=== PATIENT | male | born 1945 | race Caucasian/White ===

== ENCOUNTER 2018-02-28 12:44 | Inpatient (IN) | payer MEDICARE, MEDICAID ==
[2018-02-28] MEDS ORDERED: Heparin25000 units/250ml 1/2NS 25,000 UNITS/250 ML BAG IV STA ×2 (12:51)
--- NOTE | 2018-02-28 12:51 | C.PDOC ---
History Of Present Illness 72 year old male with a history of asthma presents to the ED via EMS with his family for evaluation new sudden onset of chest pain, headache, and difficulty breathing 30min prior to arrival. Per daughter the patient woke up with no symptoms and was able to ambulate. The daughter also notes he is prescribed Albuterol for the asthma, no other medications, no prior medical history. The family states he recently moved from [place], does not currently have a PMD. Code heart activated. Limited history due to clinical condition. Time Seen by Provider: 02/28/18 12:50 Chief Complaint (Nursing): Chest Pain History Per: Family (family.) History/Exam Limitations: clinical condition Onset/Duration Of Symptoms: Mins (30min prior to arrival.) Current Symptoms Are (Timing): Still Present Past Medical History Reviewed: Historical Data, Nursing Documentation, Vital Signs Family History: States: Unknown Family Hx Review Of Systems Review Of Systems: ROS cannot be obtained secondary to pt's inabilty to answer questions. Cardiovascular: Positive for: Chest Pain Respiratory: Positive for: Other (difficulty breathing.) Neurological: Positive for: Headache Physical Exam - Physical Exam Appears: Non-toxic, Other (moderate discomfort.) Skin: Warm, Dry Head: Atraumatic, Normacephalic Chest: Symmetrical Respiratory: Wheezing (expiratory. ) Additional Physical Exam Comments: PE limited due to patient's clinical condition. ED Course And Treatment - Laboratory Results Result Diagrams: 02/28/18 12:59 02/28/18 12:59 ECG: Interpreted By Me, Viewed By Me Interpretation Of ECG: --STEMI. --II, III aVF Rate From EC - Other Rad CXR X-Ray: Viewed By Me, Read By Radiologist Interpretation: FINDINGS: Patient rotation limits evaluation. LUNGS: Right lung hazy change, possible peripheral fibrotic changes. PLEURA: No pneumothorax or pleural fluid seen. CARDIOVASCULAR: Aortic atherosclerotic calcifications. Cardiomediastinal silhouette enlarged. OSSEOUS STRUCTURES: Spinal degenerative changes. VISUALIZED UPPER ABDOMEN: Normal. OTHER FINDINGS: None. IMPRESSION: Limited evaluation due to patient rotation. Right lung chronic interstitial changes with possible peripheral fibrotic changes. Progress - Re-Evaluation Re-evaluation Note: 02/28/18 12:51 CODE HEART ACTIVATED, DR LAGUERRE TO BEDSIDE 02/28/18 12:58 D/W DR HUGO HERNÁNDEZ CRYPTOLOGIC SUPPORT SPECIALIST - Data Reviewed Data Reviewed: Lab, Diagnostic imaging, EKG, Old records - Critical Care Citical Care: Excluding Proc Time Critical Care Time: 30 minutes Medical Decision Making Medical Decision Making: Plan: -CXR -Blood sent. -EKG -Nasal Cannula -Ecotrin -Heparin -Morphine -Brilinta Progress/Update: Dr. Laguerre at bedside. Patient taken up to County Nurse. 12:59pm Dr. Alvarado was paged. 1:13pm Spoke with Dr. Alvarado concerning patient's case. Disposition Counseled Patient/Family Regarding: Studies Performed, Diagnosis - Disposition Disposition: HOSPITALIZED Disposition Time: 12:56 Condition: CRITICAL - POA Present On Arrival: None Core Measure Indicators: Code Heart - Clinical Impression Clinical Impression: STEMI (ST elevation myocardial infarction) - Scribe Statement The provider has reviewed the documentation as recorded by the Scribe (Day Delvalle) Provider Attestation: All medical record entries made by the Scribe were at my direction and personally dictated by me. I have reviewed the chart and agree that the record accurately reflects my personal performance of the history, physical exam, medical decision making, and the department course for this patient. I have also personally directed, reviewed, and agree with the discharge instructions and disposition.
[2018-02-28 13:04] LABS: BASO # 0.1 K/uL (0.0-0.2); BASO % 1.3 % (0.0-2.0); EOS # 0.3 K/uL (0.0-0.7); HEMOGLOBIN 13.8 g/dL (12.0-18.0); LYMPH # 3.5 K/uL (1.0-4.3); LYMPH % 38.3 % (20.0-40.0); MEAN CELL VOLUME 90.3 fL (80.0-94.0); MEAN CORPUSCULAR HEMOGLOBIN 31.6 pg (27.0-31.0); MEAN CORPUSCULAR HGB CONC 34.9 g/dL (33.0-37.0); MEAN PLATELET VOLUME 7.4 fL (7.2-11.7); MONO # 0.9 K/uL (0.0-0.8); MONO % 9.9 % (0.0-10.0); NEUT # 4.3 K/uL (1.8-7.0); NEUT % 47.5 % (50.0-75.0); RBC 4.38 Mil/uL (4.40-5.90); RED CELL DISTRIBUTION WIDTH 12.8 % (11.5-14.5); WHITE BLOOD COUNT 9.1 K/uL (4.8-10.8)
--- NOTE | 2018-02-28 13:08 | RAD ---
Date of service: 02/28/2018 PROCEDURE: CHEST RADIOGRAPH, 1 VIEW HISTORY: chest pain COMPARISON: None available. FINDINGS: Patient rotation limits evaluation. LUNGS: Right lung hazy change, possible peripheral fibrotic changes. PLEURA: No pneumothorax or pleural fluid seen. CARDIOVASCULAR: Aortic atherosclerotic calcifications. Cardiomediastinal silhouette enlarged. OSSEOUS STRUCTURES: Spinal degenerative changes. VISUALIZED UPPER ABDOMEN: Normal. OTHER FINDINGS: None. IMPRESSION: Limited evaluation due to patient rotation. Right lung chronic interstitial changes with possible peripheral fibrotic changes.
[2018-02-28 13:12] LABS: INR 1.1
[2018-02-28] MEDS ORDERED: Aspirin 325 mg EC Tablets PO ONE (13:15)
[2018-02-28] MEDS ORDERED: Midazolam 2 MG/2 ML VIAL ONE (13:16)
[2018-02-28 13:18] LABS: ALB/GLOB RATIO 1.2 (1.0-2.1); ALBUMIN 4.1 g/dL (3.5-5.0); ALT/SGPT 21 U/L (21-72); AST/SGOT 26 U/L (17-59); BLOOD UREA NITROGEN 19 mg/dL (9-20); CALCIUM 9.1 mg/dl (8.6-10.4); GFR NON-AFRICAN AMERICAN > 60
[2018-02-28] MEDS ORDERED: Iodixanol 320 MG/ML 200 ML BOTTLE IV ONE (13:34)
[2018-02-28] MEDS ORDERED: Verapamil 2 ML ONE (13:34)
[2018-02-28] MEDS ORDERED: Iodixanol 320 MG/ML 100 ML BOTTLE IV ONE (13:35)
--- NOTE | 2018-02-28 13:37 | CP.PCM.CON ---
<Kendall Omalley - Last Filed: 02/28/18 14:27> History of Present Illness - History of Present Illness History of Present Illness: Kendall Omalley, PGY-[address] Laguerre, Cardiology Mr. 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 Patient returned from walking outside with his , became cool to touch, diaphoretic and his eyes started to twitch. Patient reported dizziness and L sided chest pain. Family then called and patient was brought in by ambulance. Code Heart was called while in ED, showing a inferior wall STEMI. Patient family at bedside and provided translation. Family reports 6 months of paroxysmal chest pain, but patient always said that it was due to asthma and unknown pulmonary scar tissue and would take his inhaler 3 times daily with some relief. Patient never been on antiplatelet therapy or blood thinners. Takes no medications regularly aside from inhaler and has never been followed by a can conveyor feeder. No history of CAD, DM or HTN in family. Family reports a past Echo with no known issues, but family was told it was normal. Past Patient History - Past Social History Smoking Status: Never Smoked - CARDIAC Other/Comment: states history of stroke "around 20 years ago" - PULMONARY Hx Respiratory Disorders: Yes Hx Asthma: Yes - PSYCHIATRIC Hx Substance Use: No - SURGICAL HISTORY Hx Surgeries: No - ANESTHESIA Hx Anesthesia: No Hx Anesthesia Reactions: No Hx Malignant Hyperthermia: No Meds Allergies/Adverse Reactions: Allergies Allergy/AdvReac Type Severity Reaction Status Date / Time No Known Allergies Allergy Unverified 02/28/18 13:23 - Medications Medications: Current Medications Aspirin (Ecotrin) 325 mg PO ONCE ONE Stop: 02/28/18 13:16 Heparin Sodium (Porcine) (Heparin) 5,000 units IV ONCE ONE Stop: 02/28/18 13:16 Last Admin: 02/28/18 13:24 Dose: 5,000 units Heparin Sodium/Sodium Chloride (Heparin 31480 Units/250ml 1/2 Normal Saline) 25,000 units in 250 mls @ 0 mls/hr IV .Q0M STA; Protocol Stop: 02/28/18 12:52 Metoprolol Tartrate (Lopressor) 25 mg PO ONCE ONE Stop: 02/28/18 13:31 Last Admin: 02/28/18 13:00 Dose: 25 mg Morphine Sulfate (Morphine) 2 mg IVP ONCE ONE Stop: 02/28/18 13:31 Rosuvastatin Calcium (Crestor) 10 mg PO ONCE ONE Stop: 02/28/18 13:31 Last Admin: 02/28/18 13:00 Dose: 80 mg Ticagrelor (Brilinta) 180 mg PO ONCE ONE Stop: 02/28/18 13:31 Last Admin: 02/28/18 12:55 Dose: 180 mg Physical Exam - Constitutional Appears: In Acute Distress - Head Exam Head Exam: ATRAUMATIC, NORMAL INSPECTION, NORMOCEPHALIC - Eye Exam Eye Exam: EOMI, Normal appearance Pupil Exam: PERRL - ENT Exam ENT Exam: Mucous Membranes Moist - Respiratory Exam Respiratory Exam: Decreased Breath Sounds, Wheezes. absent: Chest Wall Tenderness, Clear to Auscultation Bilateral, Rales, Respiratory Distress, Stridor, NORMAL BREATHING PATTERN Additional comments: Tachypnea - Cardiovascular Exam Cardiovascular Exam: RRR, +S1, +S2. absent: Bradycardia, Tachycardia - GI/Abdominal Exam GI & Abdominal Exam: Soft. absent: Distended, Firm, Guarding, Rebound, Tenderness - Extremities Exam Extremities exam: Negative for: pedal edema - Neurological Exam Neurological exam: Alert, Oriented x3 Results - Vital Signs Recent Vital Signs: Last Vital Signs Temp 98 F 02/28/18 12:45 Pulse 78 02/28/18 12:45 Resp 18 02/28/18 12:45 BP 136/72 02/28/18 13:00 Pulse Ox 98 02/28/18 12:45 - Labs Result Diagrams: 02/28/18 12:59 02/28/18 12:59 Labs: Laboratory Results - last 24 hr 02/28/18 02/28/18 02/28/18 12:59 12:59 12:59 WBC 9.1 RBC 4.38 L Hgb 13.8 Hct 39.5 MCV 90.3 MCH 31.6 H MCHC 34.9 RDW 12.8 Plt Count 359 MPV 7.4 Neut % (Auto) 47.5 L Lymph % (Auto) 38.3 [place] % (Auto) 9.9 Eos % (Auto) 3.0 Baso % (Auto) 1.3 Neut # (Auto) 4.3 Lymph # (Auto) 3.5 [place] # (Auto) 0.9 H Eos # (Auto) 0.3 Baso # (Auto) 0.1 PT 12.0 INR 1.1 APTT 28 Sodium 139 Potassium 3.7 Chloride 101 Carbon Dioxide 29 Anion Gap 13 BUN 19 Creatinine 0.9 Est GFR ( Amer) > 60 Est GFR (Non-Af Amer) > 60 Random Glucose 126 H Calcium 9.1 Total Bilirubin 0.5 AST 26 ALT 21 Alkaline Phosphatase 100 Total Protein 7.6 Albumin 4.1 Globulin 3.5 Albumin/Globulin Ratio 1.2 Blood Type 02/28/18 12:59 WBC RBC Hgb Hct MCV MCH MCHC RDW Plt Count MPV Neut % (Auto) Lymph % (Auto) [place] % (Auto) Eos % (Auto) Baso % (Auto) Neut # (Auto) Lymph # (Auto) [place] # (Auto) Eos # (Auto) Baso # (Auto) PT INR APTT Sodium Potassium Chloride Carbon Dioxide Anion Gap BUN Creatinine Est GFR ( Amer) Est GFR (Non-Af Amer) Random Glucose Calcium Total Bilirubin AST ALT Alkaline Phosphatase Total Protein Albumin Globulin Albumin/Globulin Ratio Blood Type O POSITIVE Assessment & Plan - Assessment and Plan (Free Text) Assessment: Mr. Nascimento is a 72 M with PMHx smoking and hemmorhagic stroke 28 years ago who presents with STEMI. 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 STEMI - EKG shows ST elevations in inferior leads II, III and avF, 62 bpm - Patient received Heparin, ASA 325, Lopressor 25, Rosuvastatin 80 mg, Ticagrelor 180 mg - Cardiac cath performed, which showed 100% RCA occlusion which was opened with angioplasty and BIANCA. See dictation report for further details. - f/u Echo - Brilinta 90 BID, ASA 81 mg, crestor 40 mg PO, Toprol XL 25 mg PO daily - Plan to open partial proximal LAD occlusion in near future - F/u Repeat EKG in AM Abnormal CXR - CXR: Aortic atherosclerotic calcifications. Cardiomediastinal silhouette enlarged. Right lung chronic interstitial changes with possible peripheral fibrotic changes. - Consider CT chest to evaluate lung findings after other cardiac occlusions fixed Disposition: Patient transfer to ICU for continuous monitoring Patient seen, case reviewed, and plan discussed with Dr. Laguerre. Future recs per Dr. Laguerre. Kendall Omalley, PGY-1 <Vikram Laguerre - Last Filed: 03/02/18 23:57> Meds - Medications Medications: Current Medications Acetaminophen (Tylenol 325mg Tab) 650 mg PO Q6 PRN PRN Reason: Pain, Mild (1-3) Albuterol/Ipratropium (Duoneb 3 Mg/0.5 Mg (3 Ml) Ud) 3 ml INH RQ6 PRN PRN Reason: Shortness of Breath Aspirin (Ecotrin) 81 mg PO DAILY [facility] Last Admin: 03/02/18 10:48 Dose: 81 mg Metoprolol Tartrate (Lopressor) 25 mg PO BID [facility] Last Admin: 03/02/18 18:23 Dose: 25 mg Pantoprazole Sodium (Protonix Ec Tab) 40 mg PO DAILY [facility] Last Admin: 03/02/18 10:47 Dose: 40 mg Rosuvastatin Calcium (Crestor) 40 mg PO HS [facility] Last Admin: 03/02/18 21:31 Dose: 40 mg Ticagrelor (Brilinta) 90 mg PO BID [facility] Last Admin: 03/02/18 18:23 Dose: 90 mg Results - Vital Signs Recent Vital Signs: Last Vital Signs Temp 98 F 03/02/18 19:24 Pulse 71 03/02/18 20:00 Resp 18 03/02/18 19:24 BP 128/72 03/02/18 19:24 Pulse Ox 97 03/02/18 19:24 - Labs Result Diagrams: 03/01/18 06:32 03/01/18 06:32 Attending/Attestation - Attestation I have personally seen and examined this patient.: Yes I have fully participated in the care of the patient.: Yes I have reviewed all pertinent clinical information: Yes
--- NOTE | 2018-02-28 13:40 | CP.PCM.CON ---
<Iris Perales - Last Filed: 02/28/18 15:47> History of Present Illness - History of Present Illness History of Present Illness: Patient is a 72 yo male with a history of asthma and remote hemorrhagic CVA who presented with SOB, chest pain, and POE. This was after going for a walk. Patient also experienced dizziness and family reports it looked like his eyes rolled back. In ED, EKG revealed ST elevations in leads II, II, and aVF, and code heart was called. Patient went for a cardiac cath with Dr. Laguerre. PMH: Asthma Hemorrhagic CVA 28 yrs ago Denies any surgical hx Meds: Albuterol prn All: NKA FH: no HTN, DM, CAD SH: recently moved form [place] lives with former smoker x20 yrs- quit 30 yrs ago occasional alcohol use denies current tobacco or illicit drug use PMD: none Review of Systems - Review of Systems Systems not reviewed;Unavailable: Other (lethargic post-op) Past Patient History - Infectious Disease Hx of Infectious Diseases: None - Tetanus Immunizations Tetanus Immunization: Unknown - Past Medical History & Family History Past Medical History?: Yes Past Family History: Reviewed and not pertinent - Past Social History Smoking Status: Former Smoker Chewing Tobacco Use: No Cigar Use: No Alcohol: None Drugs: Denies Home Situation {Lives}: With Family - CARDIAC Hx Cardiac Disorders: No - PULMONARY Hx Respiratory Disorders: Yes Hx Asthma: Yes - NEUROLOGICAL HX Cerebrovascular Accident: Yes (states history of stroke "around 20 years ago") - PSYCHIATRIC Hx Substance Use: No - SURGICAL HISTORY Hx Surgeries: No - ANESTHESIA Hx Anesthesia: No Hx Anesthesia Reactions: No Hx Malignant Hyperthermia: No Meds Allergies/Adverse Reactions: Allergies Allergy/AdvReac Type Severity Reaction Status Date / Time No Known Allergies Allergy Unverified 02/28/18 13:23 - Medications Medications: Current Medications Aspirin (Ecotrin) 325 mg PO ONCE ONE Stop: 02/28/18 13:16 Heparin Sodium (Porcine) (Heparin) 5,000 units IV ONCE ONE Stop: 02/28/18 13:16 Last Admin: 02/28/18 13:24 Dose: 5,000 units Heparin Sodium/Sodium Chloride (Heparin 64520 Units/250ml 1/2 Normal Saline) 25,000 units in 250 mls @ 0 mls/hr IV .Q0M STA; Protocol Stop: 02/28/18 12:52 Metoprolol Tartrate (Lopressor) 25 mg PO ONCE ONE Stop: 02/28/18 13:31 Last Admin: 02/28/18 13:00 Dose: 25 mg Morphine Sulfate (Morphine) 2 mg IVP ONCE ONE Stop: 02/28/18 13:31 Rosuvastatin Calcium (Crestor) 80 mg PO STAT [facility] Stop: 02/28/18 13:01 Last Admin: 02/28/18 13:00 Dose: 80 mg Ticagrelor (Brilinta) 180 mg PO ONCE ONE Stop: 02/28/18 13:31 Last Admin: 02/28/18 12:55 Dose: 180 mg Physical Exam - Constitutional Appears: No Acute Distress - Head Exam Head Exam: ATRAUMATIC, NORMAL INSPECTION - Eye Exam Eye Exam: PERRL - ENT Exam ENT Exam: Mucous Membranes Moist - Neck Exam Neck exam: Positive for: Normal Inspection - Respiratory Exam Respiratory Exam: Clear to Auscultation Bilateral, NORMAL BREATHING PATTERN. ab sent: Respiratory Distress - Cardiovascular Exam Cardiovascular Exam: REGULAR RHYTHM, +S1, +S2. absent: Tachycardia - GI/Abdominal Exam GI & Abdominal Exam: Soft. absent: Tenderness - Rectal Exam Rectal Exam: Deferred - Extremities Exam Extremities exam: Positive for: normal inspection - Skin Skin Exam: Dry, Normal Color, Warm Results - Vital Signs Recent Vital Signs: Last Vital Signs Temp 98 F 02/28/18 12:45 Pulse 78 02/28/18 12:45 Resp 18 02/28/18 12:45 BP 136/72 02/28/18 13:00 Pulse Ox 98 02/28/18 12:45 - Labs Result Diagrams: 02/28/18 12:59 02/28/18 12:59 Labs: Laboratory Results - last 24 hr 02/28/18 02/28/18 02/28/18 12:59 12:59 12:59 WBC 9.1 RBC 4.38 L Hgb 13.8 Hct 39.5 MCV 90.3 MCH 31.6 H MCHC 34.9 RDW 12.8 Plt Count 359 MPV 7.4 Neut % (Auto) 47.5 L Lymph % (Auto) 38.3 [place] % (Auto) 9.9 Eos % (Auto) 3.0 Baso % (Auto) 1.3 Neut # (Auto) 4.3 Lymph # (Auto) 3.5 [place] # (Auto) 0.9 H Eos # (Auto) 0.3 Baso # (Auto) 0.1 PT 12.0 INR 1.1 APTT 28 Sodium 139 Potassium 3.7 Chloride 101 Carbon Dioxide 29 Anion Gap 13 BUN 19 Creatinine 0.9 Est GFR ( Amer) > 60 Est GFR (Non-Af Amer) > 60 Random Glucose 126 H Calcium 9.1 Total Bilirubin 0.5 AST 26 ALT 21 Alkaline Phosphatase 100 Total Protein 7.6 Albumin 4.1 Globulin 3.5 Albumin/Globulin Ratio 1.2 Blood Type 02/28/18 12:59 WBC RBC Hgb Hct MCV MCH MCHC RDW Plt Count MPV Neut % (Auto) Lymph % (Auto) [place] % (Auto) Eos % (Auto) Baso % (Auto) Neut # (Auto) Lymph # (Auto) [place] # (Auto) Eos # (Auto) Baso # (Auto) PT INR APTT Sodium Potassium Chloride Carbon Dioxide Anion Gap BUN Creatinine Est GFR ( Amer) Est GFR (Non-Af Amer) Random Glucose Calcium Total Bilirubin AST ALT Alkaline Phosphatase Total Protein Albumin Globulin Albumin/Globulin Ratio Blood Type O POSITIVE - EKG Data EKG Interpreted by: Myself EKG shows normal: ST-T waves Rate: Normal - EKG Data Interpretation: Acute Ischemia - Impressions Impression: acute inferior ID (STEMI) Assessment & Plan - Assessment and Plan (Free Text) Assessment: Patient is a 72 yo male with asthma who presented with chest pain. Code heart was called due to ST elevations in inferior leads. Patient went for cardiac cath- stent placed in RCA (100% occluded). Plan: Neuro: - No acute issues - Post-op- monitor mental status CV: - Code heart - EKG on admission: ST elevations leads II, III, aVF - Repeat EKG in AM - Cardiac cath: 100% RCA occlusion which was opened with angioplasty and drug- illuding stent, LAD 75% occluded - CXR: R-sided chronic interstitial changes, possible fibrosis - Echo pending - Trop pending - Lipid panel pending - ASA 81 mg PO daily - Brilinta 90 mg PO BID - Crestor 40 mg PO daily - Metoprolol 25 mg PO daily - Cardiology consulted ([facility])- plan to open partial proximal LAD occlusion in near future Pulm: - Maintain spO2>92%- NC PRN - Duonebs Q6H PRN - CT chest pending GI: - Heart healthy diet Renal: - Replete electrolytes PRN - I's and O's Endo: - Maintain euglycemia - A1c pending Heme: - Monitor H&H (post-op) ID: - No acute issues- no leukocytosis, afebrile Ppx: VTE: SCDs GI: PTX 40 mg PO daily Code status: full code Case was discussed with attending, Dr. Cabezas. PGY-1 Iris Perales D.O. <Jorge Cabezas S - Last Filed: 02/28/18 18:20> Meds - Medications Medications: Current Medications Albuterol/Ipratropium (Duoneb 3 Mg/0.5 Mg (3 Ml) Ud) 3 ml INH RQ6 PRN PRN Reason: Shortness of Breath Aspirin (Ecotrin) 81 mg PO DAILY [facility] Metoprolol Succinate (Toprol Xl) 25 mg PO DAILY [facility] Pantoprazole Sodium (Protonix Ec Tab) 40 mg PO DAILY [facility] Rosuvastatin Calcium (Crestor) 40 mg PO HS [facility] Ticagrelor (Brilinta) 90 mg PO BID [facility] Results - Vital Signs Recent Vital Signs: Last Vital Signs Temp 97.6 F 02/28/18 15:37 Pulse 69 02/28/18 15:37 Resp 19 02/28/18 15:37 BP 134/79 02/28/18 15:37 Pulse Ox 100 02/28/18 14:34 - Labs Result Diagrams: 02/28/18 12:59 02/28/18 12:59 Labs: Laboratory Results - last 24 hr 02/28/18 02/28/18 02/28/18 12:59 12:59 12:59 WBC 9.1 RBC 4.38 L Hgb 13.8 Hct 39.5 MCV 90.3 MCH 31.6 H MCHC 34.9 RDW 12.8 Plt Count 359 MPV 7.4 Neut % (Auto) 47.5 L Lymph % (Auto) 38.3 [place] % (Auto) 9.9 Eos % (Auto) 3.0 Baso % (Auto) 1.3 Neut # (Auto) 4.3 Lymph # (Auto) 3.5 [place] # (Auto) 0.9 H Eos # (Auto) 0.3 Baso # (Auto) 0.1 PT 12.0 INR 1.1 APTT 28 Sodium 139 Potassium 3.7 Chloride 101 Carbon Dioxide 29 Anion Gap 13 BUN 19 Creatinine 0.9 Est GFR ( Amer) > 60 Est GFR (Non-Af Amer) > 60 Random Glucose 126 H Calcium 9.1 Phosphorus Magnesium Total Bilirubin 0.5 AST 26 ALT 21 Alkaline Phosphatase 100 Troponin I Total Protein 7.6 Albumin 4.1 Globulin 3.5 Albumin/Globulin Ratio 1.2 Blood Type Antibody Screen 02/28/18 02/28/18 02/28/18 12:59 17:23 17:23 WBC RBC Hgb Hct MCV MCH MCHC RDW Plt Count MPV Neut % (Auto) Lymph % (Auto) [place] % (Auto) Eos % (Auto) Baso % (Auto) Neut # (Auto) Lymph # (Auto) [place] # (Auto) Eos # (Auto) Baso # (Auto) PT INR APTT Sodium Potassium Chloride Carbon Dioxide Anion Gap BUN Creatinine Est GFR ( Amer) Est GFR (Non-Af Amer) Random Glucose Calcium Phosphorus 3.3 Magnesium 2.0 Total Bilirubin AST ALT Alkaline Phosphatase Troponin I 0.1220 H* Total Protein Albumin Globulin Albumin/Globulin Ratio Blood Type O POSITIVE Antibody Screen Negative Attending/Attestation - Attestation I have personally seen and examined this patient.: Yes I have fully participated in the care of the patient.: Yes I have reviewed all pertinent clinical information: Yes Notes (Text): 02/28/18 18:19 Patient seen and examined 72-year-old male status post cardiac cath with RCA stent CAT scan of the chest continue anticoagulation Continue ICU observation Echocardiogram
--- NOTE | 2018-02-28 14:20 | CP.PCM.HP ---
History of Present Illness - History of Present Illness History of Present Illness: COMPREHENSIVE H&P HPI 72 years old male presented to [facility] emergency room with 30 minutes of chest pain and EKG showed acute inferior wall VA. Patient currently is taken to cardiac cath for primary angioplasty. Patient has no previous history of coronary artery disease but does give a history of chest pain intermittently attributing to COPD there is no any recent cardiac workup done on the patient. PAST HIST. History of hypertension and history of hemorrhagic stroke a few years ago. PERSONAL HIST: Smoking. Quit 30 years ago Alcohol. N Allergy N Travel_- . FAMILY HIST : ROS : Constitutional: Negative for weight change, chills, night sweats, fatigue and usage of assist device. Eyes: Negative for redness, swelling, itching, discharge, vision changes, blurry vision, double vision, glaucoma, cataracts, Ears: Negative for hearing loss, ringing, , tinnitus, vertigo Nose: Negative for rhinorrhea, stuffiness, sniffing, itching, postnasal drip, discoloration, nasal congestion and epistaxis. Throat: Negative for throat clearing, sore throat, hoarseness, difficulty swallowing and difficulty speaking. Respiratory: Negative for cough, , sputum production, chest tightness, wheezing, pleuritic chest pain ,daytime somnolence, chronic cough, hemoptysis, snoring at night, Cardiovascular: Negative for PND, Edema of legs, leg cramps, angina, claudication, , irregular heartbeat, Neurology: Negative for irritability, muscle weakness, numbness and tingling, seizures, tremors, migraines, slurred speech, syncope, memory loss, mood changes, recurrent headaches Gastrointestinal: Negative for difficulty swallowing, diarrhea, constipation, black stools, rectal bleeding, nausea, flatulence, reflux, poor appetite, change s in bowel habits, abdominal pain Genitourinary: Negative for frequent urination, hematuria, discharge, incontinence, urinary retention, frequent UTI, Psychiatric: Negative for depression, anxiety/panic, suicidal tendencies, Musculoskeletal: Negative for swollen joints, back pain, , neck pain, morning stiffness of joints, . Skin: Negative for rash, ulcers, itching, dry skin and pigmented lesions. P/E: Constitutional: Appears stated age and in no apparent distress. Head: Normocephalic. Ears: External ear canals patent without inflammation. Tympanic membranes intact with normal light reflex and landmark. Eyes: Pupils are central, bilaterally equal, symmetrical and reacts to light with normal movements and no icterus or pallor. Nose: External nares are patent. Mucosa is pink Mouth-Throat: Good general appearance and condition. No post-pharyngeal/oropharyngeal erythema and tonsillar hypertrophy. Good dental hygiene. Neck-Lymphatic: Neck is supple with normal ROM, no thyromegaly, lymph nodes or masses. JVD is normal with no carotid bruit. Lungs: Clear to percussion and auscultation with bilateral normal air entry. Cardiovascular: S1 and S2 are normal with no murmurs, gallops and rub. GI Exam: No hepatomegaly. Abdomen is soft and non-tender. No Organomegaly , masses or hernias are evident and bowel sounds are normal and active. Neurology: Higher function and all cranial nerves intact, with no gross motor or sensory deficit. Superficial and deep reflexes are normal with downwards planters. No cerebellar deficit with normal gait. Musculoskeletal: No tender spots with normal curvature of the spine with no swelling or restricted ROM of the small and large joints. Extremities: Homans sign absent. Intact pulses with no pitting edema, calf te nderness or skin color changes. Skin: No rash, eruptions or abnormal skin pigmentation LAB/RADIOLOGY: ASSESMENT : Acute inferior wall VA Hypertension with history of stroke PLAN: Primary angioplasty for evolving inferior wall VA. Continue ICU protocol Present on Admission - Present on Admission Any Indicators Present on Admission: No Past Patient History - Infectious Disease Hx of Infectious Diseases: None - Tetanus Immunizations Tetanus Immunization: Unknown - Past Medical History & Family History Past Medical History?: Yes Past Family History: Reviewed and not pertinent - Past Social History Smoking Status: Never Smoked - CARDIAC Other/Comment: states history of stroke "around 20 years ago" - PULMONARY Hx Respiratory Disorders: Yes Hx Asthma: Yes - NEUROLOGICAL HX Cerebrovascular Accident: Yes (states history of stroke "around 20 years ago") - PSYCHIATRIC Hx Substance Use: No - SURGICAL HISTORY Hx Surgeries: No - ANESTHESIA Hx Anesthesia: No Hx Anesthesia Reactions: No Hx Malignant Hyperthermia: No Meds Allergies/Adverse Reactions: Allergies Allergy/AdvReac Type Severity Reaction Status Date / Time No Known Allergies Allergy Unverified 02/28/18 13:23 Results - Vital Signs Recent Vital Signs: Last Vital Signs Temp 98 F 02/28/18 12:45 Pulse 78 02/28/18 12:45 Resp 18 02/28/18 12:45 BP 136/72 02/28/18 13:00 Pulse Ox 98 02/28/18 12:45 - Labs Result Diagrams: 02/28/18 12:59 02/28/18 12:59 Labs: Laboratory Results - last 24 hr 02/28/18 02/28/18 02/28/18 12:59 12:59 12:59 WBC 9.1 RBC 4.38 L Hgb 13.8 Hct 39.5 MCV 90.3 MCH 31.6 H MCHC 34.9 RDW 12.8 Plt Count 359 MPV 7.4 Neut % (Auto) 47.5 L Lymph % (Auto) 38.3 Ramsey % (Auto) 9.9 Eos % (Auto) 3.0 Baso % (Auto) 1.3 Neut # (Auto) 4.3 Lymph # (Auto) 3.5 Ramsey # (Auto) 0.9 H Eos # (Auto) 0.3 Baso # (Auto) 0.1 PT 12.0 INR 1.1 APTT 28 Sodium 139 Potassium 3.7 Chloride 101 Carbon Dioxide 29 Anion Gap 13 BUN 19 Creatinine 0.9 Est GFR ( Amer) > 60 Est GFR (Non-Af Amer) > 60 Random Glucose 126 H Calcium 9.1 Total Bilirubin 0.5 AST 26 ALT 21 Alkaline Phosphatase 100 Total Protein 7.6 Albumin 4.1 Globulin 3.5 Albumin/Globulin Ratio 1.2 Blood Type Antibody Screen 02/28/18 12:59 WBC RBC Hgb Hct MCV MCH MCHC RDW Plt Count MPV Neut % (Auto) Lymph % (Auto) Ramsey % (Auto) Eos % (Auto) Baso % (Auto) Neut # (Auto) Lymph # (Auto) Ramsey # (Auto) Eos # (Auto) Baso # (Auto) PT INR APTT Sodium Potassium Chloride Carbon Dioxide Anion Gap BUN Creatinine Est GFR ( Amer) Est GFR (Non-Af Amer) Random Glucose Calcium Total Bilirubin AST ALT Alkaline Phosphatase Total Protein Albumin Globulin Albumin/Globulin Ratio Blood Type O POSITIVE Antibody Screen Negative
--- NOTE | 2018-02-28 14:26 | CP.PCM.PN ---
<Hina Garrison - Last Filed: 02/28/18 14:44> Subjective - Date & Time of Evaluation Date of Evaluation: 02/28/18 Time of Evaluation: 14:24 - Subjective Subjective: Code Heart - Medicine Note HPI: Patient is a 72 y/o male with PMHX of asthma and a distant history of hemorrhagic stroke who arrived via EMS due to chest pain, shortness of breath, and dizziness. Patient came accompanied with his two daughters and . Due to the patient's condition, limited information was obtained. Jo heart was called in the ER while the patient was in an ER room. Medicine resident offshore wind operations manager, medicine attending, resident in cardiology rotation, and dump motor operator Dr. Laguerre arrived on scene. EKG showed acute ST elevations in leads II, III and aVF, indicative of inferior HI. Dr. Laguerre explained cardiac cath procedure to patient's family while the patient was receiving the following medications per Dr. Laguerre's verbal orders: Aspirin (Ecotrin) 81 mg PO DAILY AURA Metoprolol Succinate (Toprol Xl) 25 mg PO DAILY AURA Rosuvastatin Calcium (Crestor) 40 mg PO HS AURA Ticagrelor (Brilinta) 90 mg PO BID AURA The medicine team, cardiology team, nursing, patient's family, and hospital international tax manager followed the patient in his rolling bed to the cardiac pipelines laborer, which was ready for the procedure before he arrived. Patient's consent form for cath signed by due to patient condition. The medicine team has informed the ICU about the patient, and the ICU team is anticipating his arrival s/p cath. PMHx: asthma, hemorrhagic stroke > 20 years ago PSHx: none FHx: unknown SocHx: Former smoker > 30 years ago for 20 years. Denies EtOH and illicit drugs. Patient recently moved from [place]. He does not have a local primary care physician. Meds: albuterol (?) inhaler PRN for asthma Allergies: NKDA Objective - Vital Signs/Intake and Output Vital Signs (last 24 hours): Temp Pulse Resp BP Pulse Ox 98 F 78 18 136/72 98 02/28/18 12:45 02/28/18 12:45 02/28/18 12:45 02/28/18 13:00 02/28/18 12:45 - Medications Medications: Current Medications Aspirin (Ecotrin) 81 mg PO DAILY AURA Metoprolol Succinate (Toprol Xl) 25 mg PO DAILY AURA Rosuvastatin Calcium (Crestor) 40 mg PO HS AURA Ticagrelor (Brilinta) 90 mg PO BID AURA - Labs Labs: 02/28/18 12:59 02/28/18 12:59 PT 12.0 SECONDS (9.7-12.2) 02/28/18 12:59 INR 1.1 02/28/18 12:59 APTT 28 SECONDS (21-34) 02/28/18 12:59 - Constitutional Appears: Other (Elderly man lying in bed quietly with his eyes closed) - Head Exam Head Exam: ATRAUMATIC, NORMAL INSPECTION - Neurological Exam Neurological Exam: absent: Alert, Awake - Skin Skin Exam: Dry, Intact, Normal Color, Warm Assessment and Plan - Assessment and Plan (Free Text) Assessment: Patient is a 72 y/o male with PMHX of asthma and a distant history of hemorrhagic stroke who arrived via EMS due to chest pain, shortness of breath, and dizziness. Will defer to cardiology for recommendations for STEMI management. <Myron De La Torre - Last Filed: 02/28/18 15:11> Objective - Vital Signs/Intake and Output Vital Signs (last 24 hours): Temp Pulse Resp BP Pulse Ox 98 F 78 18 136/72 98 02/28/18 12:45 02/28/18 12:45 02/28/18 12:45 02/28/18 13:00 02/28/18 12:45 - Medications Medications: Current Medications Aspirin (Ecotrin) 81 mg PO DAILY AURA Metoprolol Succinate (Toprol Xl) 25 mg PO DAILY AURA Rosuvastatin Calcium (Crestor) 40 mg PO HS AURA Ticagrelor (Brilinta) 90 mg PO BID AURA - Labs Labs: 02/28/18 12:59 02/28/18 12:59 PT 12.0 SECONDS (9.7-12.2) 02/28/18 12:59 INR 1.1 02/28/18 12:59 APTT 28 SECONDS (21-34) 02/28/18 12:59 Attending/Attestation - Attestation I have personally seen and examined this patient.: Yes I have fully participated in the care of the patient.: Yes I have reviewed all pertinent clinical information, including history, physical exam and plan: Yes Notes (Text): 02/28/18 15:08 Patient had a CODE HEART called in the ER and was seen by cardiology in ER and brought to the cardiac catherization lab. He did have a portable before the CXRAY and it appears patient does have some perihilar area abnormality. After we brought patient to the pipelines laborer I spoke with ICU team to let them know about the CXRAY finding Myron De La Torre
[2018-02-28] MEDS ORDERED: Albuterol-Ipratrop 3 mg / 0.5 (3 ml) UD INH PRN (16:03)
[2018-02-28 17:59] LABS: TROPONIN I 0.122 ng/mL (0.00-0.120)
[2018-02-28 18:33] LABS: CK-MB 2.94 ng/mL (0.0-3.38)
--- NOTE | 2018-03-01 00:21 | CARDCATH ---
PROCEDURE DATE: 02/28/2018 CLINICAL INDICATIONS: Mr. Nascimento is a 72-year-old male presented to [facility] emergency room with complaints of chest pain, which started half an hour prior to presentation. Prior medical history is significant for only asthma for which he was given inhalers. According to family, he was having intermittent chest pains for a few months, but symptoms got severely worse and excruciating about half an hour prior to presentation. EKG on initial presentation in the emergency room showed ST elevation in the inferior leads. The patient was brought emergently to cathode builder for inferior wall ST elevation KS. PROCEDURES: 1. Emergent left heart catheterization with selective left and right coronary angiogram via left radial arterial approach, 6-Mohawk left radial arterial access, PTCA stenting of proximal RCA, deployment of 2.75 x 28 mm Xience drug eluting stent, lesion reduction from 100% now to 0% MANJINDER 3 flow. 2. Coronary angiography of the left coronary system. 3. Left ventriculogram, wrist band for hemostasis. ANGIOGRAPHIC FINDINGS: RCA proximal 100% occluded. Successful PTCA stenting with a 2.75 x 28 mm Xience drug eluting stent. Left coronary system shows left main large sized vessel bifurcates into LAD and circ, left circumflex has a proximal moderate 55% stenosis, gives off a obtuse marginal branch. Left anterior descending artery has a proximal 75% to 80% stenosis after the first septal rent control office manager. Gives off two small diagonal branches. Left ventricular ejection fraction 55 to 60. EDP was 16 mmHg. IMPRESSION: Successful angioplasty of an acutely occluded right coronary artery with one drug eluting stent, residual moderate left circumflex and residual severe left anterior descending disease. Normal ejection fraction. RECOMMENDATIONS: The patient is to be kept on dual antiplatelet therapy, ICU observation, echocardiogram, guideline-directed therapy for CAD. The patient is to undergo staged intervention of the LAD in 24 to 48 hours depending on renal function. Vikram Laguerre MD [facility]
[2018-03-01 06:39] LABS: BASO # 0.1 K/uL (0.0-0.2); BASO % 1.4 % (0.0-2.0); EOS # 0.3 K/uL (0.0-0.7); HEMOGLOBIN 13.9 g/dL (12.0-18.0); LYMPH # 2.1 K/uL (1.0-4.3); LYMPH % 33.6 % (20.0-40.0); MEAN CORPUSCULAR HEMOGLOBIN 31.3 pg (27.0-31.0); MEAN CORPUSCULAR HGB CONC 34.8 g/dL (33.0-37.0); MEAN PLATELET VOLUME 7.9 fL (7.2-11.7); MONO # 0.6 K/uL (0.0-0.8); MONO % 9.3 % (0.0-10.0); NEUT # 3.2 K/uL (1.8-7.0); NEUT % 51.7 % (50.0-75.0); RBC 4.45 Mil/uL (4.40-5.90); WHITE BLOOD COUNT 6.2 K/uL (4.8-10.8)
[2018-03-01 07:17] LABS: LDL CHOLESTEROL 105 mg/dL (0-129)
[2018-03-01 07:52] LABS: ALB/GLOB RATIO 1.2 (1.0-2.1); ALT/SGPT 17 U/L (21-72); AST/SGOT 40 U/L (17-59); BLOOD UREA NITROGEN 17 mg/dL (9-20); CALCIUM 8.9 mg/dl (8.6-10.4); CK-MB 6.44 ng/mL (0.0-3.38); GFR NON-AFRICAN AMERICAN > 60; HDL CHOLESTEROL 32 mg/dL (30-70)
[2018-03-01] MEDS ORDERED: Metoprolol Succinate 25 mg XL Tab PO SCH (10:00)
[2018-03-01] MEDS: Pantoprazole 40 mg EC Tab PO SCH (10:23)
--- NOTE | 2018-03-01 11:59 | CP.CCUPN ---
<Iris Perales - Last Filed: 03/01/18 15:17> CCU Subjective - Physician Review Events Since Last Encounter (Free Text): 03/01/18 12:41 no over night events reported Subjective (Free Text): 03/01/18 12:41 Patient was seen and examined this morning. He is complaining of a mild POE. He denies chest pain, SOB, dizziness, diaphoresis. There is no bleeding form the radial site of cath entry. Critical Care Time Spent (in minutes): 35 CCU Objective - Vital Signs / Intake & Output Vital Signs (Last 4 hours): Vital Signs Temp Pulse Resp BP Pulse Ox 03/01/18 10:30 74 16 98 03/01/18 10:21 116/70 03/01/18 10:02 72 19 116/70 97 03/01/18 10:00 74 20 97 03/01/18 09:38 72 18 121/69 96 03/01/18 09:30 72 20 98 03/01/18 09:02 70 16 118/61 97 03/01/18 09:00 71 21 97 03/01/18 08:30 72 10 L 96 03/01/18 08:02 70 10 L 137/70 97 03/01/18 08:00 97.8 F 76 14 97 Intake and Output (Last 8hrs): Intake & Output 02/28/18 03/01/18 03/01/18 22:59 06:59 14:59 Intake Total 990 490 600 Output Total 650 550 280 Balance 340 -60 320 Weight 144 lb 9.6 oz Intake: Intake, IV Amount 0 Left Antecubital 0 Right Antecubital 0 Right Forearm 0 Oral 990 490 600 Output: Urine 650 550 280 Urine, Voided 650 550 280 Other: # Voids Urine, Voided 1 0 1 # Bowel Movements 0 0 0 - Physical Exam Head: Positive for: Atraumatic, Normocephalic Pupils: Positive for: PERRL Extroacular Muscles: Positive for: EOMI Conjunctiva: Positive for: Normal Mouth: Positive for: Moist Mucous Membranes Neck: Positive for: Normal Range of Motion Respiratory/Chest: Positive for: Wheezes (Right). Negative for: Respiratory Distress, Accessory Muscle Use Cardiovascular: Positive for: Regular Rate and Rhythm, Normal S1, S2. Negative for: Murmurs, Tachycardic Abdomen: Negative for: Tenderness, Distention Upper Extremity: Positive for: Normal Inspection Lower Extremity: Positive for: Normal Inspection Neurological: Positive for: GCS=15, CN II-XII Intact, Speech Normal Skin: Positive for: Warm, Dry, Normal Color Psychiatric: Positive for: Alert, Oriented x 3, Normal Insight, Normal Concentration - Medications Active Medications: Active Medications Generic Name Dose Route Start Last Admin Trade Name Freq PRN Reason Stop Dose Admin Acetaminophen 650 mg 03/01/18 10:49 Tylenol 325mg Tab PO Q6 PRN Pain, Mild (1-3) Albuterol/Ipratropium 3 ml 02/28/18 16:03 Duoneb 3 Mg/0.5 Mg (3 Ml) Ud INH RQ6 PRN Shortness of Breath Aspirin 81 mg 03/01/18 10:00 03/01/18 10:21 Ecotrin PO 81 mg DAILY AURA Administration Metoprolol Tartrate 25 mg 02/28/18 18:30 03/01/18 10:21 Lopressor PO 25 mg BID AURA Administration Pantoprazole Sodium 40 mg 03/01/18 10:00 03/01/18 10:23 Protonix Ec Tab PO 40 mg DAILY AURA Administration Rosuvastatin Calcium 40 mg 03/01/18 22:00 Crestor PO HS AURA Ticagrelor 90 mg 03/01/18 10:00 03/01/18 10:22 Brilinta PO 90 mg BID AURA Administration - Patient Studies Lab Studies: Lab Studies 03/01/18 03/01/18 03/01/18 Range/Units 06:32 06:32 06:32 WBC 6.2 (4.8-10.8) K/uL RBC 4.45 (4.40-5.90) Mil/uL Hgb 13.9 (12.0-18.0) g/dL Hct 40.0 (35.0-51.0) % MCV 90.0 (80.0-94.0) fL MCH 31.3 H (27.0-31.0) pg MCHC 34.8 (33.0-37.0) g/dL RDW 13.0 (11.5-14.5) % Plt Count 324 (130-400) K/uL MPV 7.9 (7.2-11.7) fL Neut % (Auto) 51.7 (50.0-75.0) % Lymph % (Auto) 33.6 (20.0-40.0) % [place] % (Auto) 9.3 (0.0-10.0) % Eos % (Auto) 4.0 (0.0-4.0) % Baso % (Auto) 1.4 (0.0-2.0) % Neut # (Auto) 3.2 (1.8-7.0) K/uL Lymph # (Auto) 2.1 (1.0-4.3) K/uL [place] # (Auto) 0.6 (0.0-0.8) K/uL Eos # (Auto) 0.3 (0.0-0.7) K/uL Baso # (Auto) 0.1 (0.0-0.2) K/uL PT (9.7-12.2) SECONDS INR APTT (21-34) SECONDS Sodium 140 (132-148) mmol/L Potassium 4.5 (3.6-5.2) mmol/L Chloride 103 (98-107) mmol/L Carbon Dioxide 30 (22-30) mmol/L Anion Gap 12 (10-20) BUN 17 (9-20) mg/dL Creatinine 0.8 (0.8-1.5) mg/dL Est GFR ( Amer) > 60 Est GFR (Non-Af Amer) > 60 Random Glucose 82 (75-110) mg/dL Hemoglobin A1c 5.6 (4.2-6.5) % Calcium 8.9 (8.6-10.4) mg/dl Phosphorus 3.2 (2.5-4.5) mg/dL Magnesium 2.2 (1.6-2.3) mg/dL Total Bilirubin 0.6 (0.2-1.3) mg/dL AST 40 (17-59) U/L ALT 17 L (21-72) U/L Alkaline Phosphatase 116 (38-126) U/L Total Creatine Kinase 150 (55-170) U/L CK-MB (Mass) 6.44 H (0.0-3.38) ng/mL Troponin I 0.7350 H* (0.00-0.120) ng/mL Total Protein 7.3 (6.3-8.3) g/dL Albumin 4.0 (3.5-5.0) g/dL Globulin 3.3 (2.2-3.9) gm/dL Albumin/Globulin Ratio 1.2 (1.0-2.1) Triglycerides 120 (0-149) mg/dL Cholesterol 160 (0-199) mg/dL LDL Cholesterol Direct 105 (0-129) mg/dL HDL Cholesterol 32 (30-70) mg/dL Blood Type Antibody Screen 02/28/18 02/28/18 02/28/18 Range/Units 17:23 17:23 12:59 WBC (4.8-10.8) K/uL RBC (4.40-5.90) Mil/uL Hgb (12.0-18.0) g/dL Hct (35.0-51.0) % MCV (80.0-94.0) fL MCH (27.0-31.0) pg MCHC (33.0-37.0) g/dL RDW (11.5-14.5) % Plt Count (130-400) K/uL MPV (7.2-11.7) fL Neut % (Auto) (50.0-75.0) % Lymph % (Auto) (20.0-40.0) % [place] % (Auto) (0.0-10.0) % Eos % (Auto) (0.0-4.0) % Baso % (Auto) (0.0-2.0) % Neut # (Auto) (1.8-7.0) K/uL Lymph # (Auto) (1.0-4.3) K/uL [place] # (Auto) (0.0-0.8) K/uL Eos # (Auto) (0.0-0.7) K/uL Baso # (Auto) (0.0-0.2) K/uL PT (9.7-12.2) SECONDS INR APTT (21-34) SECONDS Sodium (132-148) mmol/L Potassium (3.6-5.2) mmol/L Chloride (98-107) mmol/L Carbon Dioxide (22-30) mmol/L Anion Gap (10-20) BUN (9-20) mg/dL Creatinine (0.8-1.5) mg/dL Est GFR ( Amer) Est GFR (Non-Af Amer) Random Glucose (75-110) mg/dL Hemoglobin A1c (4.2-6.5) % Calcium (8.6-10.4) mg/dl Phosphorus 3.3 (2.5-4.5) mg/dL Magnesium 2.0 (1.6-2.3) mg/dL Total Bilirubin (0.2-1.3) mg/dL AST (17-59) U/L ALT (21-72) U/L Alkaline Phosphatase (38-126) U/L Total Creatine Kinase 167 (55-170) U/L CK-MB (Mass) 2.94 (0.0-3.38) ng/mL Troponin I 0.1220 H* (0.00-0.120) ng/mL Total Protein (6.3-8.3) g/dL Albumin (3.5-5.0) g/dL Globulin (2.2-3.9) gm/dL Albumin/Globulin Ratio (1.0-2.1) Triglycerides (0-149) mg/dL Cholesterol (0-199) mg/dL LDL Cholesterol Direct (0-129) mg/dL HDL Cholesterol (30-70) mg/dL Blood Type O POSITIVE Antibody Screen Negative 02/28/18 02/28/18 02/28/18 Range/Units 12:59 12:59 12:59 WBC 9.1 (4.8-10.8) K/uL RBC 4.38 L (4.40-5.90) Mil/uL Hgb 13.8 (12.0-18.0) g/dL Hct 39.5 (35.0-51.0) % MCV 90.3 (80.0-94.0) fL MCH 31.6 H (27.0-31.0) pg MCHC 34.9 (33.0-37.0) g/dL RDW 12.8 (11.5-14.5) % Plt Count 359 (130-400) K/uL MPV 7.4 (7.2-11.7) fL Neut % (Auto) 47.5 L (50.0-75.0) % Lymph % (Auto) 38.3 (20.0-40.0) % [place] % (Auto) 9.9 (0.0-10.0) % Eos % (Auto) 3.0 (0.0-4.0) % Baso % (Auto) 1.3 (0.0-2.0) % Neut # (Auto) 4.3 (1.8-7.0) K/uL Lymph # (Auto) 3.5 (1.0-4.3) K/uL [place] # (Auto) 0.9 H (0.0-0.8) K/uL Eos # (Auto) 0.3 (0.0-0.7) K/uL Baso # (Auto) 0.1 (0.0-0.2) K/uL PT 12.0 (9.7-12.2) SECONDS INR 1.1 APTT 28 (21-34) SECONDS Sodium 139 (132-148) mmol/L Potassium 3.7 (3.6-5.2) mmol/L Chloride 101 (98-107) mmol/L Carbon Dioxide 29 (22-30) mmol/L Anion Gap 13 (10-20) BUN 19 (9-20) mg/dL Creatinine 0.9 (0.8-1.5) mg/dL Est GFR ( Amer) > 60 Est GFR (Non-Af Amer) > 60 Random Glucose 126 H (75-110) mg/dL Hemoglobin A1c (4.2-6.5) % Calcium 9.1 (8.6-10.4) mg/dl Phosphorus (2.5-4.5) mg/dL Magnesium (1.6-2.3) mg/dL Total Bilirubin 0.5 (0.2-1.3) mg/dL AST 26 (17-59) U/L ALT 21 (21-72) U/L Alkaline Phosphatase 100 (38-126) U/L Total Creatine Kinase (55-170) U/L CK-MB (Mass) (0.0-3.38) ng/mL Troponin I (0.00-0.120) ng/mL Total Protein 7.6 (6.3-8.3) g/dL Albumin 4.1 (3.5-5.0) g/dL Globulin 3.5 (2.2-3.9) gm/dL Albumin/Globulin Ratio 1.2 (1.0-2.1) Triglycerides (0-149) mg/dL Cholesterol (0-199) mg/dL LDL Cholesterol Direct (0-129) mg/dL HDL Cholesterol (30-70) mg/dL Blood Type Antibody Screen Laboratory Results - last 24 hr 02/28/18 02/28/18 02/28/18 12:59 12:59 12:59 WBC 9.1 RBC 4.38 L Hgb 13.8 Hct 39.5 MCV 90.3 MCH 31.6 H MCHC 34.9 RDW 12.8 Plt Count 359 MPV 7.4 Neut % (Auto) 47.5 L Lymph % (Auto) 38.3 [place] % (Auto) 9.9 Eos % (Auto) 3.0 Baso % (Auto) 1.3 Neut # (Auto) 4.3 Lymph # (Auto) 3.5 [place] # (Auto) 0.9 H Eos # (Auto) 0.3 Baso # (Auto) 0.1 PT 12.0 INR 1.1 APTT 28 Sodium 139 Potassium 3.7 Chloride 101 Carbon Dioxide 29 Anion Gap 13 BUN 19 Creatinine 0.9 Est GFR ( Amer) > 60 Est GFR (Non-Af Amer) > 60 Random Glucose 126 H Hemoglobin A1c Calcium 9.1 Phosphorus Magnesium Total Bilirubin 0.5 AST 26 ALT 21 Alkaline Phosphatase 100 Total Creatine Kinase CK-MB (Mass) Troponin I Total Protein 7.6 Albumin 4.1 Globulin 3.5 Albumin/Globulin Ratio 1.2 Triglycerides Cholesterol LDL Cholesterol Direct HDL Cholesterol Blood Type Antibody Screen 02/28/18 02/28/18 02/28/18 12:59 17:23 17:23 WBC RBC Hgb Hct MCV MCH MCHC RDW Plt Count MPV Neut % (Auto) Lymph % (Auto) [place] % (Auto) Eos % (Auto) Baso % (Auto) Neut # (Auto) Lymph # (Auto) [place] # (Auto) Eos # (Auto) Baso # (Auto) PT INR APTT Sodium Potassium Chloride Carbon Dioxide Anion Gap BUN Creatinine Est GFR ( Amer) Est GFR (Non-Af Amer) Random Glucose Hemoglobin A1c Calcium Phosphorus 3.3 Magnesium 2.0 Total Bilirubin AST ALT Alkaline Phosphatase Total Creatine Kinase 167 CK-MB (Mass) 2.94 Troponin I 0.1220 H* Total Protein Albumin Globulin Albumin/Globulin Ratio Triglycerides Cholesterol LDL Cholesterol Direct HDL Cholesterol Blood Type O POSITIVE Antibody Screen Negative 03/01/18 03/01/18 03/01/18 06:32 06:32 06:32 WBC 6.2 RBC 4.45 Hgb 13.9 Hct 40.0 MCV 90.0 MCH 31.3 H MCHC 34.8 RDW 13.0 Plt Count 324 MPV 7.9 Neut % (Auto) 51.7 Lymph % (Auto) 33.6 [place] % (Auto) 9.3 Eos % (Auto) 4.0 Baso % (Auto) 1.4 Neut # (Auto) 3.2 Lymph # (Auto) 2.1 [place] # (Auto) 0.6 Eos # (Auto) 0.3 Baso # (Auto) 0.1 PT INR APTT Sodium 140 Potassium 4.5 Chloride 103 Carbon Dioxide 30 Anion Gap 12 BUN 17 Creatinine 0.8 Est GFR ( Amer) > 60 Est GFR (Non-Af Amer) > 60 Random Glucose 82 Hemoglobin A1c 5.6 Calcium 8.9 Phosphorus 3.2 Magnesium 2.2 Total Bilirubin 0.6 AST 40 ALT 17 L Alkaline Phosphatase 116 Total Creatine Kinase 150 CK-MB (Mass) 6.44 H Troponin I 0.7350 H* Total Protein 7.3 Albumin 4.0 Globulin 3.3 Albumin/Globulin Ratio 1.2 Triglycerides 120 Cholesterol 160 LDL Cholesterol Direct 105 HDL Cholesterol 32 Blood Type Antibody Screen EKG/Cardiology Studies: Cardiology / EKG Studies 02/28/18 12:46 ELECTROCARDIOGRAM Stat Comment: Mode Of Transportation: BED Reason For Exam: chest pain 02/28/18 12:52 ELECTROCARDIOGRAM Stat Comment: Mode Of Transportation: BED Reason For Exam: chest pain 02/28/18 15:23 EKG [ELECTROCARDIOGRAM] Routine Comment: Mode Of Transportation: Reason For Exam: chest pain 03/01/18 06:00 EKG [ELECTROCARDIOGRAM] DAILY Comment: Mode Of Transportation: STRETCHER Reason For Exam: post STEMI Results Reviewed to Date: Yes Review of Systems - Constitutional Constitutional: absent: Fever, Chills, Sweats - EENT Eyes: UNREMARKABLE Ears: UNREMARKABLE Nose/Mouth/Throat: UNREMARKABLE - Cardiovascular Cardiovascular: absent: Chest Pain, Chest Pain at Rest, Diaphoresis, Dyspnea, Palpitations - Respiratory Respiratory: absent: Cough, Dyspnea, Hemoptysis, Pain on Inspiration, Chest Congestion - Gastrointestinal Gastrointestinal: absent: Abdominal Pain, Constipation, Diarrhea, Nausea, Vomiting - Musculoskeletal Musculoskeletal: UNREMARKABLE - Integumentary Integumentary: UNREMARKABLE - Neurological Neurological: Headaches. absent: Dizziness - Psychiatric Psychiatric: UNREMARKABLE - Endocrine Endocrine: UNREMARKABLE - Hematologic/Lymphatic Hematologic: UNREMARKABLE Critical Care Progress Note - Extremities/Vascular Does the Patient have a Central Venous Catheter?: No Does the Patient need a Central Venous Catheter?: No Does the Patient have a Zheng Catheter?: No Does the Patient need a Zheng Catheter?: No - Prophylaxis GI Prophylaxis GI: PPI - Prophylaxis DVT Prophylaxis DVT: SCDs - Nutrition Nutrition: Nutrition Category Date Time Status Heart Healthy Diet [DIET] Diets 02/28/18 Dinner Active Assessment/Plan - Assessment and Plan (Free Text) Assessment: Patient is a 72 yo male with asthma who presented with chest pain. Code heart was called due to ST elevations in inferior leads. Patient went for cardiac cath- stent placed in RCA (100% occluded). Patient's repeat EKG was NSR without ST elevations. Patient is asymptomatic. He is able to be transferred to telemetry unit. Plan: Neuro: Headache- mild - Tylenol 650 mg PO Q6H PRN CV: STEMI- inferior - Code heart - EKG on admission: ST elevations leads II, III, aVF - Repeat EKG in AM: NSR, no ST elevations - Cardiac cath: 100% RCA occlusion opened with angioplasty and drug-illuding stent, LAD 75% occluded - CXR: R-sided chronic interstitial changes, possible fibrosis - Trop 0.122->0.735 - CKMB 2.94->6.44 - Lipid panel wnl - Echo: EF 60-65% - ASA 81 mg PO daily - Brilinta 90 mg PO BID - Crestor 40 mg PO daily - Metoprolol 25 mg PO BID - Cardiology consulted ([facility])- plan to open partial proximal LAD occlusion in near future Pulm: Asthma - Maintain spO2>92%- NC PRN - Duonebs Q6H PRN R hilar mass - CT chest/abd/pelvis pending - Hem/onc consulted ([facility]) GI: - No acute issues - Heart healthy diet Renal: - Replete electrolytes PRN - I's and O's Endo: - Maintain euglycemia - A1c 5.6 Heme: - Monitor H&H (post-op)- wnl and stable ID: - No acute issues- no leukocytosis, afebrile Ppx: VTE: SCDs GI: PTX 40 mg PO daily Code status: full code Case was discussed with attending, Dr. Yola Chester. PGY-1 Iris Perales D.O. <Enmanuel Chester M - Last Filed: 03/02/18 11:24> CCU Objective - Vital Signs / Intake & Output Vital Signs (Last 4 hours): Vital Signs BP 03/02/18 10:47 137/71 Intake and Output (Last 8hrs): Intake & Output 03/01/18 03/02/18 03/02/18 22:59 06:59 14:59 Intake Total 420 120 0 Output Total 440 600 0 Balance -20 -480 0 Intake: Oral 420 120 0 Output: Urine 440 600 0 Urine, Voided 440 600 0 Stool 0 Other: # Voids Urine, Voided 1 - Medications Active Medications: Active Medications Generic Name Dose Route Start Last Admin Trade Name Freq PRN Reason Stop Dose Admin Acetaminophen 650 mg 03/01/18 10:49 Tylenol 325mg Tab PO Q6 PRN Pain, Mild (1-3) Albuterol/Ipratropium 3 ml 02/28/18 16:03 Duoneb 3 Mg/0.5 Mg (3 Ml) Ud INH RQ6 PRN Shortness of Breath Aspirin 81 mg 03/01/18 10:00 03/02/18 10:48 Ecotrin PO 81 mg DAILY [facility] Administration Metoprolol Tartrate 25 mg 02/28/18 18:30 03/02/18 10:47 Lopressor PO 25 mg BID [facility] Administration Pantoprazole Sodium 40 mg 03/01/18 10:00 03/02/18 10:47 Protonix Ec Tab PO 40 mg DAILY [facility] Administration Rosuvastatin Calcium 40 mg 03/01/18 22:00 03/01/18 21:49 Crestor PO 40 mg HS [facility] Administration Ticagrelor 90 mg 03/01/18 10:00 03/02/18 10:47 Brilinta PO 90 mg BID [facility] Administration - Patient Studies Lab Studies: Microbiology Studies 02/28/18 17:23 MRSA Culture (Admit) - Final Naris MRSA NOT DETECTED Critical Care Progress Note - Nutrition Nutrition: Nutrition Category Date Time Status Heart Healthy Diet [DIET] Diets 02/28/18 Dinner Active Assessment/Plan - Assessment and Plan (Free Text) Plan: Above patient seen and examined at bedside Patient s/p cardiac cath. Patient has no specifi complaints. -Above resident documents my clinical management and physical exam. -PAtient remains hemodynamically stable -continue rx as per cardiology -oncology eval for lung mass (CT abd/pelvis pending) - Date & Time Date: 03/01/18 Time: 19:00
--- NOTE | 2018-03-01 12:14 | CARD ---
APPROVED REPORT Date of service: 02/28/2018 EKG Measurement Heart [id number] <Conclusion> Sinus rhythm with 2nd degree AV block (Mobitz I) with ventricular escape complexes ST elevation, consider inferior injury or acute infarct ACUTE AK / STEMI Consider right ventricular involvement in acute inferior infarct Abnormal ECG
--- NOTE | 2018-03-01 14:22 | CP.PCM.PN ---
Subjective - Date & Time of Evaluation Date of Evaluation: 03/01/18 Time of Evaluation: 14:20 - Subjective Subjective: CHIEF COMPLAINTS TODAY : No further chest pain shortness of breath ROS. HEENT : N. Resp : No cough, wheezing ,pleuritic CP ,or hemoptysis Cardio : No anginal CP, PND, orthopnea, palpitation GI : No abd.pain, n/v ,diarrhea or GI bleeding . POURER METAL : No headache, vertigo, focal deficit. Musculoskel : No joint swelling , Derm : No rash Psych : Normal affect. Ext : No swelling ,calf pain PE. Pt. is alert awake in no distress. V.S As noted in the chart Head ,ear nose,throat and eyes : Normal. Neck : Supple with normal carotids. Lungs: Clear air entry. Heart : S1 & S2 normal with S4. No murmur. Abd : Soft non tender with normal bowel sounds. Neuro : Moves all ext. with no localized deficit. Ext : No edema with intact pulses.Non tender calves Derm : No rashes or decubitus ulcer. LABS/RADIOLOGY: ASSESSMENT/PLAN : Status post drug-eluting stent of the RCA secondary to acute inferior wall PR stable 70% LAD lesion to be treated when stable. Continue currently DA PT. Objective - Vital Signs/Intake and Output Vital Signs (last 24 hours): Temp Pulse Resp BP Pulse Ox 97.8 F 61 15 132/88 97 03/01/18 08:00 03/01/18 12:02 03/01/18 12:02 03/01/18 12:02 03/01/18 12:02 Intake and Output: 03/01/18 03/01/18 11:59 23:59 Intake Total 1210 Output Total 830 Balance 380 - Medications Medications: Current Medications Acetaminophen (Tylenol 325mg Tab) 650 mg PO Q6 PRN PRN Reason: Pain, Mild (1-3) Albuterol/Ipratropium (Duoneb 3 Mg/0.5 Mg (3 Ml) Ud) 3 ml INH RQ6 PRN PRN Reason: Shortness of Breath Aspirin (Ecotrin) 81 mg PO DAILY [facility] Last Admin: 03/01/18 10:21 Dose: 81 mg Metoprolol Tartrate (Lopressor) 25 mg PO BID [facility] Last Admin: 03/01/18 10:21 Dose: 25 mg Pantoprazole Sodium (Protonix Ec Tab) 40 mg PO DAILY [facility] Last Admin: 03/01/18 10:23 Dose: 40 mg Rosuvastatin Calcium (Crestor) [address] [facility] Ticagrelor (Brilinta) 90 mg PO BID [facility] Last Admin: 03/01/18 10:22 Dose: 90 mg - Labs Labs: 03/01/18 06:32 03/01/18 06:32 PT 12.0 SECONDS (9.7-12.2) 02/28/18 12:59 INR 1.1 02/28/18 12:59 APTT 28 SECONDS (21-34) 02/28/18 12:59
--- NOTE | 2018-03-01 15:02 | CARD ---
APPROVED REPORT Date of service: 02/28/2018 EXAM: Two-dimensional and M-mode echocardiogram with Doppler and color Doppler. Other Information Quality : GoodRhythm : INDICATION Stemi/ Code Heart 2D DIMENSIONS IVSd0.7 (0.7-1.1cm)LVDd4.5 (3.9-5.9cm) PWd1.1 (0.7-1.1cm)LA Uwotle95 (18-58mL) LVDs3.0 (2.5-4.0cm)FS (%) 32.2 % LVEF (%)60.5 (>50%)LVEF (Fish's)60.65 % IVC0.00 cm M-Mode DIMENSIONS Left Atrium (MM)4.02 (2.5-4.0cm)IVSd0.96 (0.7-1.1cm) Aortic Root3.29 (2.2-3.7cm)LVDd4.32 (4.0-5.6cm) Aortic Cusp Exc.2.08 (1.5-2.0cm)PWd0.93 (0.7-1.1cm) FS (%) 25 %LVDs3.25 (2.0-3.8cm) LVEF (%)55 (>50%) Mitral Valve MV E Mkwblvah77.6cm/sMV A Nhptgijp448.6cm/sE/A ratio0.6 TDI Lateral E' Peak V7.51cm/sMedial E' Peak V5.51cm/sE/Lateral E'8.2 E/Medial E'11.2 Tricuspid Valve TR Peak [id number]/sTR Peak [id number] LEFT VENTRICLE The left ventricle is normal size. There is normal left ventricular wall thickness. The Ejection Fraction is 60-65%. There is normal LV segmental wall motion. Transmitral Doppler flow pattern is Grade I-abnormal relaxation pattern. AORTIC VALVE The aortic valve is normal in structure. No aortic regurgitation is present. MITRAL VALVE The mitral valve is normal in structure. There is no mitral valve regurgitation noted. TRICUSPID VALVE The tricuspid valve is normal in structure. There is mild tricuspid regurgitation. Right ventricular systolic pressure is estimated at 26 mmHg. There is no pulmonary hypertension. PULMONIC VALVE The pulmonary valve is normal in structure. GREAT VESSELS The aortic root is normal in size. The IVC is normal in size and collapses >50% with inspiration. PERICARDIAL EFFUSION There is no pericardial effusion. <Conclusion> The left ventricle is normal size. The Ejection Fraction is 60-65%. Transmitral Doppler flow pattern is Grade I-abnormal relaxation pattern. There is mild tricuspid regurgitation. Right ventricular systolic pressure is estimated at 26 mmHg. There is no pulmonary hypertension. There is no pericardial effusion.
--- NOTE | 2018-03-01 15:42 | CT ---
Date of service: 03/01/2018 CT chest, abdomen, and pelvis without IV contrast Indication: ?R hilar mass Technique: Contiguous axial images of the chest, abdomen, and pelvis without oral or IV contrast. Coronal and Sagittal reformats generated and reviewed. This CT exam was performed using 1 or more of the following dose reduction techniques: Automated exposure control, adjustment of the MAA and/or kV according to patient size, and/or use of iterative reconstruction technique. Radiation dose: Total exam DLP = 719.7 MGy-cm. Comparison: Chest x-ray performed 02/28/18. Findings: Visualized portions of the inferior thyroid gland appear unremarkable. Right-sided volume loss with deviation of the mediastinum to the right. Diffuse fibrotic/interstitial changes on the right greater than left. Pleural thickening. Biapical pleural thickening and upper lobe granulomatous changes. Cardiomegaly. Atherosclerotic calcification of the aorta present. Question presence of right perihilar consolidation or adenopathy/neoplasm; this region is poorly assessed due to deviation of the cardiomediastinal contents to the right as well as lack of IV contrast. Prevascular adenopathy measuring up to approximately 9 mm in short axis. Probable dependent sludge or small gallstones within the gallbladder. The noncontrast liver, spleen, pancreas, appear grossly unremarkable. The stomach is nondistended. Lack of oral contrast limits evaluation for bowel pathology. The bowel loops appear within normal limits of caliber without evidence of intestinal obstruction. The appendix appears within normal limits of caliber. No secondary signs of acute appendicitis. Incidental note is made of an appendicolith at the appendiceal tip. There is no definite free air. Prostate gland appears heterogeneous and enlarged. Distention of the urinary bladder. Degenerative changes of the spine. 7 mm rounded lucent focus within the left proximal femur. Impression: Question presence of right perihilar consolidation or adenopathy/neoplasm; this region is poorly assessed due to deviation of the cardiomediastinal contents to the right as well as lack of IV contrast. Prevascular adenopathy measuring up to approximately 9 mm in short axis. Recommend CT of the chest with IV contrast if clinically feasible/indicated. Diffuse fibrotic/interstitial changes on the right greater than left. Pleural thickening. Biapical pleural thickening and upper lobe granulomatous changes. Probable dependent sludge or small gallstones within the gallbladder. Enlargement of the prostate gland which appears heterogeneous. Recommend correlation with PSA. Additional findings as above.
--- NOTE | 2018-03-01 20:19 | CP.PCM.CON ---
History of Present Illness - History of Present Illness History of Present Illness: 72 year old male with a history of former tobacco abuse, asthma, hemorrhagic CVA, admitted with STEMI s/p cardiac cath, PCI with BIANCA, found to have a right perihilar mass. The patient notes to feeling better since his PCI. Review of his CT C/A/P reveals possible right perihilar mass and lucent lesion involving the left femur. He denies fevers and chills. He notes he maintains a good appetite and denies weightloss. Past medical history: former tobacco abuse, asthma, hemorrhagic CVA Past surgical history: Denies Family history: Denies hematologic and oncologic problems Social history: Former tobacco abuse Allergies: NKA Review of systems: All remaining review of systems including HEENT, cardiovascular, respiratory, gastrointestinal, genitourinary, musculoskeletal, dermatologic, neurologic, and psychiatric are negative unless mentioned in the HPI. Past Patient History - Infectious Disease Hx of Infectious Diseases: None - Tetanus Immunizations Tetanus Immunization: Unknown - Past Medical History & Family History Past Medical History?: Yes Past Family History: Reviewed and not pertinent - Past Social History Smoking Status: Former Smoker Chewing Tobacco Use: No Cigar Use: No Alcohol: None Drugs: Denies Home Situation {Lives}: With Family - CARDIAC Hx Cardiac Disorders: No - PULMONARY Hx Respiratory Disorders: Yes Hx Asthma: Yes - NEUROLOGICAL HX Cerebrovascular Accident: Yes (states history of stroke "around 20 years ago") - HEENT Hx HEENT Problems: No - RENAL Hx Chronic Kidney Disease: No - ENDOCRINE/METABOLIC Hx Endocrine Disorders: No - HEMATOLOGICAL/ONCOLOGICAL Hx Blood Disorders: No - INTEGUMENTARY Hx Dermatological Problems: No - MUSCULOSKELETAL/RHEUMATOLOGICAL Hx Musculoskeletal Disorders: No Hx Falls: No - GASTROINTESTINAL Hx Gastrointestinal Disorders: No - GENITOURINARY/GYNECOLOGICAL Hx Genitourinary Disorders: No - PSYCHIATRIC Hx Substance Use: No - SURGICAL HISTORY Hx Surgeries: No - ANESTHESIA Hx Anesthesia: No Hx Anesthesia Reactions: No Hx Malignant Hyperthermia: No Meds Allergies/Adverse Reactions: Allergies Allergy/AdvReac Type Severity Reaction Status Date / Time No Known Allergies Allergy Unverified 02/28/18 13:23 - Medications Medications: Current Medications Acetaminophen (Tylenol 325mg Tab) 650 mg PO Q6 PRN PRN Reason: Pain, Mild (1-3) Albuterol/Ipratropium (Duoneb 3 Mg/0.5 Mg (3 Ml) Ud) 3 ml INH RQ6 PRN PRN Reason: Shortness of Breath Aspirin (Ecotrin) 81 mg PO DAILY [facility] Last Admin: 03/01/18 10:21 Dose: 81 mg Metoprolol Tartrate (Lopressor) 25 mg PO BID [facility] Last Admin: 03/01/18 18:29 Dose: 25 mg Pantoprazole Sodium (Protonix Ec Tab) 40 mg PO DAILY [facility] Last Admin: 03/01/18 10:23 Dose: 40 mg Rosuvastatin Calcium (Crestor) 40 mg PO [facility] Ticagrelor (Brilinta) 90 mg PO BID [facility] Last Admin: 03/01/18 18:29 Dose: 90 mg Physical Exam - Head Exam Head Exam: ATRAUMATIC - Eye Exam Eye Exam: Normal appearance - ENT Exam ENT Exam: Mucous Membranes Dry - Respiratory Exam Respiratory Exam: NORMAL BREATHING PATTERN - Cardiovascular Exam Cardiovascular Exam: +S1, +S2 - GI/Abdominal Exam GI & Abdominal Exam: Normal Bowel Sounds - Extremities Exam Extremities exam: Positive for: normal inspection - Neurological Exam Neurological exam: Oriented x3 - Psychiatric Exam Psychiatric exam: Normal Affect, Normal Mood - Skin Skin Exam: Warm Results - Vital Signs Recent Vital Signs: Last Vital Signs Temp 97.8 F 03/01/18 08:00 Pulse 70 03/01/18 19:00 Resp 19 03/01/18 19:00 BP 118/67 03/01/18 18:29 Pulse Ox 93 L 03/01/18 19:00 - Labs Result Diagrams: 03/01/18 06:32 03/01/18 06:32 Labs: Laboratory Results - last 24 hr 03/01/18 03/01/18 03/01/18 06:32 06:32 06:32 WBC 6.2 RBC 4.45 Hgb 13.9 Hct 40.0 MCV 90.0 MCH 31.3 H MCHC 34.8 RDW 13.0 Plt Count 324 MPV 7.9 Neut % (Auto) 51.7 Lymph % (Auto) 33.6 Iron % (Auto) 9.3 Eos % (Auto) 4.0 Baso % (Auto) 1.4 Neut # (Auto) 3.2 Lymph # (Auto) 2.1 Iron # (Auto) 0.6 Eos # (Auto) 0.3 Baso # (Auto) 0.1 Sodium 140 Potassium 4.5 Chloride 103 Carbon Dioxide 30 Anion Gap 12 BUN 17 Creatinine 0.8 Est GFR ( Amer) > 60 Est GFR (Non-Af Amer) > 60 Random Glucose 82 Hemoglobin A1c 5.6 Calcium 8.9 Phosphorus 3.2 Magnesium 2.2 Total Bilirubin 0.6 AST 40 ALT 17 L Alkaline Phosphatase 116 Total Creatine Kinase 150 CK-MB (Mass) 6.44 H Troponin I 0.7350 H* Total Protein 7.3 Albumin 4.0 Globulin 3.3 Albumin/Globulin Ratio 1.2 Triglycerides 120 Cholesterol 160 LDL Cholesterol Direct 105 HDL Cholesterol 32 Assessment & Plan (1) Lung mass Assessment and Plan: will need contrast enhanced imaging for further evaluation tissue biopsy when more stable ? bronchoscopy further treatment recommendations based on pathology Thank you for this interesting consult. Status: Acute
[2018-03-02] MEDS: Pantoprazole 40 mg EC Tab PO SCH (10:47)
--- NOTE | 2018-03-02 14:13 | CP.PCM.PN ---
Subjective - Date & Time of Evaluation Date of Evaluation: 03/02/18 Time of Evaluation: 14:12 - Subjective Subjective: CHIEF COMPLAINTS TODAY : No further chest pain shortness of breath ROS. HEENT : N. Resp : No cough, wheezing ,pleuritic CP ,or hemoptysis Cardio : No anginal CP, PND, orthopnea, palpitation GI : No abd.pain, n/v ,diarrhea or GI bleeding . 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 Musculoskel : No joint swelling , Derm : No rash Psych : Normal affect. Ext : No swelling ,calf pain PE. Pt. is alert awake in no distress. V.S As noted in the chart Head ,ear nose,throat and eyes : Normal. Neck : Supple with normal carotids. Lungs: Clear air entry. Heart : S1 & S2 normal with S4. No murmur. Abd : Soft non tender with normal bowel sounds. Neuro : Moves all ext. with no localized deficit. Ext : No edema with intact pulses.Non tender calves Derm : No rashes or decubitus ulcer. LABS/RADIOLOGY: ASSESSMENT/PLAN : Status post drug-eluting stent of the RCA secondary to acute inferior wall MT stable 70% LAD lesion to be treated when stable. Continue currently DA PT. oncology evaluation for hilar mass Objective - Vital Signs/Intake and Output Vital Signs (last 24 hours): Temp Pulse Resp BP Pulse Ox 97.7 F 82 20 137/71 98 03/02/18 00:00 03/02/18 06:32 03/02/18 06:32 03/02/18 10:47 03/02/18 05:32 Intake and Output: 03/02/18 03/02/18 11:59 23:59 Intake Total 0 Output Total 600 Balance -600 - Medications Medications: Current Medications Acetaminophen (Tylenol 325mg Tab) 650 mg PO Q6 PRN PRN Reason: Pain, Mild (1-3) Albuterol/Ipratropium (Duoneb 3 Mg/0.5 Mg (3 Ml) Ud) 3 ml INH RQ6 PRN PRN Reason: Shortness of Breath Aspirin (Ecotrin) 81 mg PO DAILY [facility] Last Admin: 03/02/18 10:48 Dose: 81 mg Metoprolol Tartrate (Lopressor) 25 mg PO BID [facility] Last Admin: 03/02/18 10:47 Dose: 25 mg Pantoprazole Sodium (Protonix Ec Tab) 40 mg PO DAILY [facility] Last Admin: 03/02/18 10:47 Dose: 40 mg Rosuvastatin Calcium (Crestor) 40 mg PO HS [facility] Last Admin: 03/01/18 21:49 Dose: 40 mg Ticagrelor (Brilinta) 90 mg PO BID [facility] Last Admin: 03/02/18 10:47 Dose: 90 mg - Labs Labs: 03/01/18 06:32 03/01/18 06:32 PT 12.0 SECONDS (9.7-12.2) 02/28/18 12:59 INR 1.1 02/28/18 12:59 APTT 28 SECONDS (21-34) 02/28/18 12:59
--- NOTE | 2018-03-02 21:28 | CARD ---
APPROVED REPORT Date of service: 02/28/2018 EKG Measurement Heart [id number] <Conclusion> Normal sinus rhythm Nonspecific ST abnormality Abnormal ECG
--- NOTE | 2018-03-02 22:24 | CP.PCM.PN ---
Subjective - Date & Time of Evaluation Date of Evaluation: 03/02/18 Time of Evaluation: 19:00 - Subjective Subjective: Feeling better. Objective - Vital Signs/Intake and Output Vital Signs (last 24 hours): Temp Pulse Resp BP Pulse Ox 98 F 72 18 128/72 97 03/02/18 19:24 03/02/18 19:24 03/02/18 19:24 03/02/18 19:24 03/02/18 19:24 Intake and Output: 03/02/18 03/03/18 18:59 06:59 Intake Total 700 Output Total 0 Balance 700 - Medications Medications: Current Medications Acetaminophen (Tylenol 325mg Tab) 650 mg PO Q6 PRN PRN Reason: Pain, Mild (1-3) Albuterol/Ipratropium (Duoneb 3 Mg/0.5 Mg (3 Ml) Ud) 3 ml INH RQ6 PRN PRN Reason: Shortness of Breath Aspirin (Ecotrin) 81 mg PO DAILY [facility] Last Admin: 03/02/18 10:48 Dose: 81 mg Metoprolol Tartrate (Lopressor) 25 mg PO BID [facility] Last Admin: 03/02/18 18:23 Dose: 25 mg Pantoprazole Sodium (Protonix Ec Tab) 40 mg PO DAILY [facility] Last Admin: 03/02/18 10:47 Dose: 40 mg Rosuvastatin Calcium (Crestor) 40 mg PO HS [facility] Last Admin: 03/02/18 21:31 Dose: 40 mg Ticagrelor (Brilinta) 90 mg PO BID [facility] Last Admin: 03/02/18 18:23 Dose: 90 mg - Labs Labs: 03/01/18 06:32 03/01/18 06:32 PT 12.0 SECONDS (9.7-12.2) 02/28/18 12:59 INR 1.1 02/28/18 12:59 APTT 28 SECONDS (21-34) 02/28/18 12:59 - Head Exam Head Exam: ATRAUMATIC - Eye Exam Eye Exam: Normal appearance - ENT Exam ENT Exam: Mucous Membranes Dry - Respiratory Exam Respiratory Exam: NORMAL BREATHING PATTERN - Cardiovascular Exam Cardiovascular Exam: +S1, +S2 - GI/Abdominal Exam GI & Abdominal Exam: Normal Bowel Sounds Assessment and Plan (1) Lung mass Assessment & Plan: will need contrast enhanced imaging for further evaluation; will order to be done in AM tissue biopsy when more stable ? bronchoscopy further treatment recommendations based on pathology Status: Acute
--- NOTE | 2018-03-02 23:58 | CP.PCM.PN ---
Subjective - Date & Time of Evaluation Date of Evaluation: 03/02/18 Time of Evaluation: 07:00 - Subjective Subjective: stable cp free Objective - Vital Signs/Intake and Output Vital Signs (last 24 hours): Temp Pulse Resp BP Pulse Ox 98 F 71 18 128/72 97 03/02/18 19:24 03/02/18 20:00 03/02/18 19:24 03/02/18 19:24 03/02/18 19:24 Intake and Output: 03/02/18 03/03/18 18:59 06:59 Intake Total 700 Output Total 0 Balance 700 - Medications Medications: Current Medications Acetaminophen (Tylenol 325mg Tab) 650 mg PO Q6 PRN PRN Reason: Pain, Mild (1-3) Albuterol/Ipratropium (Duoneb 3 Mg/0.5 Mg (3 Ml) Ud) 3 ml INH RQ6 PRN PRN Reason: Shortness of Breath Aspirin (Ecotrin) 81 mg PO DAILY [facility] Last Admin: 03/02/18 10:48 Dose: 81 mg Metoprolol Tartrate (Lopressor) 25 mg PO BID [facility] Last Admin: 03/02/18 18:23 Dose: 25 mg Pantoprazole Sodium (Protonix Ec Tab) 40 mg PO DAILY [facility] Last Admin: 03/02/18 10:47 Dose: 40 mg Rosuvastatin Calcium (Crestor) 40 mg PO HS [facility] Last Admin: 03/02/18 21:31 Dose: 40 mg Ticagrelor (Brilinta) 90 mg PO BID [facility] Last Admin: 03/02/18 18:23 Dose: 90 mg - Labs Labs: 03/01/18 06:32 03/01/18 06:32 PT 12.0 SECONDS (9.7-12.2) 02/28/18 12:59 INR 1.1 02/28/18 12:59 APTT 28 SECONDS (21-34) 02/28/18 12:59 - Constitutional Appears: Well - Head Exam Head Exam: ATRAUMATIC, NORMAL INSPECTION, NORMOCEPHALIC - Eye Exam Eye Exam: EOMI, Normal appearance, PERRL Pupil Exam: NORMAL ACCOMODATION, PERRL - ENT Exam ENT Exam: Mucous Membranes Moist, Normal Exam - Neck Exam Neck Exam: Full ROM, Normal Inspection. absent: Lymphadenopathy - Respiratory Exam Respiratory Exam: Clear to Ausculation Bilateral, NORMAL BREATHING PATTERN - Cardiovascular Exam Cardiovascular Exam: REGULAR RHYTHM, +S1, +S2. absent: Murmur - GI/Abdominal Exam GI & Abdominal Exam: Soft, Normal Bowel Sounds. absent: Tenderness - Extremities Exam Extremities Exam: Full ROM, Normal Capillary Refill, Normal Inspection. absent: Joint Swelling, Pedal Edema - Back Exam Back Exam: NORMAL INSPECTION - Neurological Exam Neurological Exam: Alert, Awake, CN II-XII Intact, Normal Gait, Oriented x3 - Psychiatric Exam Psychiatric exam: Normal Affect, Normal Mood - Skin Skin Exam: Dry, Intact, Normal Color, Warm Assessment and Plan (1) STEMI (ST elevation myocardial infarction) Assessment & Plan: cont dapt cont bb, statins plan for staged PCi of LAD monday Status: Acute (2) Lung mass Status: Acute
[2018-03-03] MEDS: Pantoprazole 40 mg EC Tab PO SCH (10:15)
[2018-03-03] MEDS ORDERED: Iohexol 240 (50 ml) PO ONE (13:00)
--- NOTE | 2018-03-03 14:19 | CP.PCM.PN ---
Subjective - Date & Time of Evaluation Date of Evaluation: 03/03/18 Time of Evaluation: 14:18 - Subjective Subjective: CHIEF COMPLAINTS TODAY : No further chest pain shortness of breath ROS. HEENT : N. Resp : No cough, wheezing ,pleuritic CP ,or hemoptysis Cardio : No anginal CP, PND, orthopnea, palpitation GI : No abd.pain, n/v ,diarrhea or GI bleeding . 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 Musculoskel : No joint swelling , Derm : No rash Psych : Normal affect. Ext : No swelling ,calf pain PE. Pt. is alert awake in no distress. V.S As noted in the chart Head ,ear nose,throat and eyes : Normal. Neck : Supple with normal carotids. Lungs: Clear air entry. Heart : S1 & S2 normal with S4. No murmur. Abd : Soft non tender with normal bowel sounds. Neuro : Moves all ext. with no localized deficit. Ext : No edema with intact pulses.Non tender calves Derm : No rashes or decubitus ulcer. LABS/RADIOLOGY: ASSESSMENT/PLAN : patient will be going Monday for LAD.angioplasty. Patient currently undergoing tests for the mass in the hilar region Objective - Vital Signs/Intake and Output Vital Signs (last 24 hours): Temp Pulse Resp BP Pulse Ox 97.3 F L 60 20 120/74 95 03/03/18 07:00 03/03/18 12:00 03/03/18 07:00 03/03/18 10:16 03/03/18 07:00 - Medications Medications: Current Medications Acetaminophen (Tylenol 325mg Tab) 650 mg PO Q6 PRN PRN Reason: Pain, Mild (1-3) Albuterol/Ipratropium (Duoneb 3 Mg/0.5 Mg (3 Ml) Ud) 3 ml INH RQ6 PRN PRN Reason: Shortness of Breath Aspirin (Ecotrin) 81 mg PO DAILY [facility] Last Admin: 03/03/18 10:15 Dose: 81 mg Metoprolol Tartrate (Lopressor) 25 mg PO BID [facility] Last Admin: 03/03/18 10:15 Dose: 25 mg Pantoprazole Sodium (Protonix Ec Tab) 40 mg PO DAILY [facility] Last Admin: 03/03/18 10:15 Dose: 40 mg Rosuvastatin Calcium (Crestor) 40 mg PO HS [facility] Last Admin: 03/02/18 21:31 Dose: 40 mg Ticagrelor (Brilinta) 90 mg PO BID [facility] Last Admin: 03/03/18 10:15 Dose: 90 mg - Labs Labs: 03/01/18 06:32 03/01/18 06:32 PT 12.0 SECONDS (9.7-12.2) 02/28/18 12:59 INR 1.1 02/28/18 12:59 APTT 28 SECONDS (21-34) 02/28/18 12:59
[2018-03-03] MEDS ORDERED: Iodixanol 320 MG/ML 100 ML BOTTLE IV ONE (15:40)
--- NOTE | 2018-03-03 18:00 | CT ---
Date of service: 03/03/2018 PROCEDURE: CT Chest, Abdomen and Pelvis with intravenous contrast HISTORY: rule out malignancy COMPARISON: Noncontrast chest, abdomen and pelvis CT 03/01/2018. TECHNIQUE: Helical CT of the chest, abdomen and pelvis was performed following oral and dynamic intravenous contrast administration. Reformatted dataset have been provided for added characterization. IV dose administered: Visipaque 320, 100 cc Radiation dose: Total exam DLP = 763.03 mGy-cm. This CT exam was performed using one or more of the following dose reduction techniques: Automated exposure control, adjustment of the mA and/or kV according to patient size, and/or use of iterative reconstruction technique. FINDINGS: CT CHEST WITH CONTRAST: There is extensive pulmonary fibrosis including honeycombing at the right upper right middle and particularly right lower lobe. Limited fibrotic changes seen affecting the left upper lobe a definitive mass is not clearly identified bilaterally. Central airways appear grossly clear. Marked volume loss of the right lung results in rightward mediastinal shift. No definite acute infiltrate appreciated. The thoracic inlet is unremarkable including the thyroid gland. The thoracic aorta is normal in caliber as well as the main pulmonary artery. Mildly enlarged left hilar lymph nodes identified at 1.4 x 0.9 cm. An inferior left aorta pulmonary window lymph node measures 2.2 x 1.1 cm with inferior right paratracheal lymph node measuring 1.9 x 1.0 cm. A 1.7 x 2.0 cm right peribronchial lymph node abuts the right mainstem bronchus. Mild cardiomegaly reiterated with limited coronary artery atherosclerosis identified. No pericardial effusion. No pleural effusion bilaterally. No lytic or blastic bony changes or fracture evident. Small hiatal hernia is identified. OTHER FINDINGS: None. CT ABDOMEN AND PELVIS: No hepatic mass or intrahepatic biliary dilatation identified. Gallbladder and spleen are unremarkable swells the pancreas, bilateral adrenal glands and kidneys. Nonaneurysmal abdominal aortic calcific atherosclerotic changes are identified. The stomach is unremarkable. No bowel obstruction appreciated. Moderate fecal loading is seen throughout various large-bowel segments with a normal appearing appendix identified. No pericolic or perienteric reactive changes to suggest colitis or enteritis. Tiny umbilical hernia is appreciate containing only fat. Urinary bladder appears unremarkable a mild prostate gland enlargement is noted. No lytic or blastic bony changes or definite acute fracture identified. OTHER FINDINGS: None. IMPRESSION: 1. Advanced interstitial pulmonary disease is appreciate greater the right than left with marked right pulmonary volume loss shifting the mediastinum rightward. While there is [id number] mediastinal lymphadenopathy, there is no discrete mass appreciable including the right hilum. Follow-up nuclear PET-CT may be helpful for added sensitivity. 2. Stable mild cardiomegaly. No pulmonary vascular congestion. 3. No definitive pattern of neoplasm in the abdomen or pelvis as imaged. Prostate gland appears mildly enlarged. 4. No definite acute chest, abdomen or pelvis findings.
[2018-03-04 07:33] LABS: BASO # 0.1 K/uL (0.0-0.2); BASO % 1.4 % (0.0-2.0); EOS # 0.3 K/uL (0.0-0.7); EOS % 4.5 % (0.0-4.0); HEMOGLOBIN 15.1 g/dL (12.0-18.0); LYMPH # 2.1 K/uL (1.0-4.3); LYMPH % 34.6 % (20.0-40.0); MEAN CELL VOLUME 89.1 fL (80.0-94.0); MEAN CORPUSCULAR HEMOGLOBIN 30.8 pg (27.0-31.0); MEAN CORPUSCULAR HGB CONC 34.6 g/dL (33.0-37.0); MEAN PLATELET VOLUME 7.6 fL (7.2-11.7); MONO # 0.6 K/uL (0.0-0.8); MONO % 10.2 % (0.0-10.0); NEUT # 2.9 K/uL (1.8-7.0); NEUT % 49.3 % (50.0-75.0); NRBC % 0.2 % (0.0-2.0); RBC 4.91 Mil/uL (4.40-5.90); RED CELL DISTRIBUTION WIDTH 12.7 % (11.5-14.5)
[2018-03-04 08:02] LABS: ALB/GLOB RATIO 1.2 (1.0-2.1); ALBUMIN 4.2 g/dL (3.5-5.0); ALT/SGPT 31 U/L (21-72); AST/SGOT 43 U/L (17-59); BLOOD UREA NITROGEN 21 mg/dL (9-20); CALCIUM 9.5 mg/dl (8.6-10.4); GFR NON-AFRICAN AMERICAN > 60
[2018-03-04] MEDS: Pantoprazole 40 mg EC Tab PO SCH (10:06)
--- NOTE | 2018-03-04 14:05 | CP.PCM.PN ---
Subjective - Date & Time of Evaluation Date of Evaluation: 03/04/18 Time of Evaluation: 14:05 - Subjective Subjective: CHIEF COMPLAINTS TODAY : No further chest pain shortness of breath ROS. HEENT : N. Resp : No cough, wheezing ,pleuritic CP ,or hemoptysis Cardio : No anginal CP, PND, orthopnea, palpitation GI : No abd.pain, n/v ,diarrhea or GI bleeding . 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 Musculoskel : No joint swelling , Derm : No rash Psych : Normal affect. Ext : No swelling ,calf pain PE. Pt. is alert awake in no distress. V.S As noted in the chart Head ,ear nose,throat and eyes : Normal. Neck : Supple with normal carotids. Lungs: Clear air entry. Heart : S1 & S2 normal with S4. No murmur. Abd : Soft non tender with normal bowel sounds. Neuro : Moves all ext. with no localized deficit. Ext : No edema with intact pulses.Non tender calves Derm : No rashes or decubitus ulcer. LABS/RADIOLOGY: ASSESSMENT/PLAN : patient will be going Monday for LAD.angioplasty. Patient currently undergoing tests for the mass in the hilar region Objective - Vital Signs/Intake and Output Vital Signs (last 24 hours): Temp Pulse Resp BP Pulse Ox 97.6 F 81 20 130/78 100 03/04/18 07:39 03/04/18 12:06 03/04/18 07:39 03/04/18 10:05 03/04/18 12:06 Intake and Output: 03/04/18 03/04/18 11:59 23:59 Intake Total Output Total Balance - Medications Medications: Current Medications Acetaminophen (Tylenol 325mg Tab) 650 mg PO Q6 PRN PRN Reason: Pain, Mild (1-3) Albuterol/Ipratropium (Duoneb 3 Mg/0.5 Mg (3 Ml) Ud) 3 ml INH RQ6 PRN PRN Reason: Shortness of Breath Aspirin (Ecotrin) 81 mg PO DAILY [facility] Last Admin: 03/04/18 10:05 Dose: 81 mg Metoprolol Tartrate (Lopressor) 25 mg PO BID [facility] Last Admin: 03/04/18 10:05 Dose: 25 mg Pantoprazole Sodium (Protonix Ec Tab) 40 mg PO DAILY [facility] Last Admin: 03/04/18 10:06 Dose: 40 mg Rosuvastatin Calcium (Crestor) 40 mg PO HS [facility] Last Admin: 03/03/18 21:30 Dose: 40 mg Ticagrelor (Brilinta) 90 mg PO BID [facility] Last Admin: 03/04/18 10:05 Dose: 90 mg - Labs Labs: 03/04/18 07:28 03/04/18 07:28 PT 12.0 SECONDS (9.7-12.2) 02/28/18 12:59 INR 1.1 02/28/18 12:59 APTT 28 SECONDS (21-34) 02/28/18 12:59
--- NOTE | 2018-03-04 20:22 | CP.PCM.PN ---
Subjective - Date & Time of Evaluation Date of Evaluation: 03/03/18 Time of Evaluation: 17:00 - Subjective Subjective: No complaints. Objective - Vital Signs/Intake and Output Vital Signs (last 24 hours): Temp Pulse Resp BP Pulse Ox 97.8 F 79 20 123/79 97 03/04/18 15:00 03/04/18 15:00 03/04/18 15:00 03/04/18 17:30 03/04/18 15:00 - Medications Medications: Current Medications Acetaminophen (Tylenol 325mg Tab) 650 mg PO Q6 PRN PRN Reason: Pain, Mild (1-3) Albuterol/Ipratropium (Duoneb 3 Mg/0.5 Mg (3 Ml) Ud) 3 ml INH RQ6 PRN PRN Reason: Shortness of Breath Aspirin (Ecotrin) 81 mg PO DAILY [facility] Last Admin: 03/04/18 10:05 Dose: 81 mg Metoprolol Tartrate (Lopressor) 25 mg PO BID [facility] Last Admin: 03/04/18 17:30 Dose: 25 mg Pantoprazole Sodium (Protonix Ec Tab) 40 mg PO DAILY [facility] Last Admin: 03/04/18 10:06 Dose: 40 mg Rosuvastatin Calcium (Crestor) 40 mg PO HS [facility] Last Admin: 03/03/18 21:30 Dose: 40 mg Ticagrelor (Brilinta) 90 mg PO BID [facility] Last Admin: 03/04/18 17:30 Dose: 90 mg - Labs Labs: 03/04/18 07:28 03/04/18 07:28 PT 12.0 SECONDS (9.7-12.2) 02/28/18 12:59 INR 1.1 02/28/18 12:59 APTT 28 SECONDS (21-34) 02/28/18 12:59 - Head Exam Head Exam: ATRAUMATIC - Eye Exam Eye Exam: Normal appearance - ENT Exam ENT Exam: Mucous Membranes Dry - Respiratory Exam Respiratory Exam: NORMAL BREATHING PATTERN - Cardiovascular Exam Cardiovascular Exam: +S1, +S2 - GI/Abdominal Exam GI & Abdominal Exam: Normal Bowel Sounds Assessment and Plan (1) Lung mass Assessment & Plan: no hilar mass by contrast enhanced scan mediastinal lymphadenopathy noted will discuss with pulmonary if EBUS can be done after PCI Status: Acute
--- NOTE | 2018-03-04 20:23 | CP.PCM.PN ---
Subjective - Date & Time of Evaluation Date of Evaluation: 03/04/18 Time of Evaluation: 19:00 - Subjective Subjective: No complaints. Objective - Vital Signs/Intake and Output Vital Signs (last 24 hours): Temp Pulse Resp BP Pulse Ox 97.8 F 79 20 123/79 97 03/04/18 15:00 03/04/18 15:00 03/04/18 15:00 03/04/18 17:30 03/04/18 15:00 - Medications Medications: Current Medications Acetaminophen (Tylenol 325mg Tab) 650 mg PO Q6 PRN PRN Reason: Pain, Mild (1-3) Albuterol/Ipratropium (Duoneb 3 Mg/0.5 Mg (3 Ml) Ud) 3 ml INH RQ6 PRN PRN Reason: Shortness of Breath Aspirin (Ecotrin) 81 mg PO DAILY [facility] Last Admin: 03/04/18 10:05 Dose: 81 mg Metoprolol Tartrate (Lopressor) 25 mg PO BID [facility] Last Admin: 03/04/18 17:30 Dose: 25 mg Pantoprazole Sodium (Protonix Ec Tab) 40 mg PO DAILY [facility] Last Admin: 03/04/18 10:06 Dose: 40 mg Rosuvastatin Calcium (Crestor) 40 mg PO HS [facility] Last Admin: 03/03/18 21:30 Dose: 40 mg Ticagrelor (Brilinta) 90 mg PO BID [facility] Last Admin: 03/04/18 17:30 Dose: 90 mg - Labs Labs: 03/04/18 07:28 03/04/18 07:28 PT 12.0 SECONDS (9.7-12.2) 02/28/18 12:59 INR 1.1 02/28/18 12:59 APTT 28 SECONDS (21-34) 02/28/18 12:59 - Head Exam Head Exam: ATRAUMATIC - Eye Exam Eye Exam: Normal appearance - ENT Exam ENT Exam: Mucous Membranes Dry - Respiratory Exam Respiratory Exam: NORMAL BREATHING PATTERN - Cardiovascular Exam Cardiovascular Exam: +S1, +S2 - GI/Abdominal Exam GI & Abdominal Exam: Normal Bowel Sounds Assessment and Plan (1) Lung mass Assessment & Plan: no hilar mass seen by contrast enhanced scan mediastinal lymphadenopathy noted; will discuss with pulmonary about EBUS once PCI completed. Status: Acute
[2018-03-05] MEDS: Pantoprazole 40 mg EC Tab PO SCH (09:04)
--- NOTE | 2018-03-05 10:58 | CP.PCM.PN ---
Subjective - Date & Time of Evaluation Date of Evaluation: 03/05/18 Time of Evaluation: 09:50 - Subjective Subjective: Kendall Omalley, PGY-[address] Laguerre Patient seen and evaluated at bedside. Daughter present at bedside. Patient sitting comfortably in chair and denies current chest pain, shortness of breath, palpitations, dizziness, headaches. No acute events reported overnight. Patient preparing for transfer for PCI of LAD artery today. Objective - Vital Signs/Intake and Output Vital Signs (last 24 hours): Temp Pulse Resp BP Pulse Ox 97.9 F 76 20 134/78 97 03/05/18 07:24 03/05/18 07:24 03/05/18 07:24 03/05/18 09:04 03/05/18 07:24 Intake and Output: 03/05/18 03/05/18 06:59 18:59 Intake Total 0 Output Total 0 Balance 0 - Medications Medications: Current Medications Acetaminophen (Tylenol 325mg Tab) 650 mg PO Q6 PRN PRN Reason: Pain, Mild (1-3) Albuterol/Ipratropium (Duoneb 3 Mg/0.5 Mg (3 Ml) Ud) 3 ml INH RQ6 PRN PRN Reason: Shortness of Breath Aspirin (Ecotrin) 81 mg PO DAILY [facility] Last Admin: 03/05/18 09:04 Dose: 81 mg Metoprolol Tartrate (Lopressor) 25 mg PO BID [facility] Last Admin: 03/05/18 09:04 Dose: 25 mg Pantoprazole Sodium (Protonix Ec Tab) 40 mg PO DAILY [facility] Last Admin: 03/05/18 09:04 Dose: 40 mg Rosuvastatin Calcium (Crestor) 40 mg PO HS [facility] Last Admin: 03/04/18 21:44 Dose: 40 mg Ticagrelor (Brilinta) 90 mg PO BID [facility] Last Admin: 03/05/18 09:04 Dose: 90 mg - Labs Labs: 03/04/18 07:28 03/04/18 07:28 PT 12.0 SECONDS (9.7-12.2) 02/28/18 12:59 INR 1.1 02/28/18 12:59 APTT 28 SECONDS (21-34) 02/28/18 12:59 - Constitutional Appears: Well, Non-toxic, No Acute Distress - Head Exam Head Exam: ATRAUMATIC, NORMAL INSPECTION, NORMOCEPHALIC - Eye Exam Eye Exam: EOMI, Normal appearance - Neck Exam Neck Exam: Normal Inspection - Respiratory Exam Respiratory Exam: Decreased Breath Sounds, Wheezes (R>L bases). absent: Accessory Muscle Use, Chest Wall Tenderness, Respiratory Distress - Cardiovascular Exam Cardiovascular Exam: RRR, +S1, +S2. absent: JVD - GI/Abdominal Exam GI & Abdominal Exam: Soft. absent: Distended, Guarding, Rigid, Tenderness - Extremities Exam Extremities Exam: absent: Pedal Edema - Skin Skin Exam: Dry, Intact, Normal Color, Warm Assessment and Plan - Assessment and Plan (Free Text) Assessment: Assessment: Mr. Nascimento is a 72 M with PMHx smoking and hemmorhagic stroke 28 years ago who presents with STEMI. 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 STEMI - EKG on admission shows ST elevations in inferior leads II, III and avF, 62 bpm - Patient received Heparin, ASA 325, Lopressor 25, Rosuvastatin 80 mg, Ticagrelor 180 mg - Cardiac cath performed 02/28, which showed 100% RCA occlusion which was opened with angioplasty and BIANCA. See dictation report for further details. - Echo 02/28 shows EF 60-65% with mildly dilated LA and RVSP ~26 mm Hg - Brilinta 90 BID, ASA 81 mg, crestor 40 mg PO, Toprol XL 25 mg PO daily - NPO, plan to open partial proximal LAD occlusion later today Abnormal CXR - CXR: Aortic atherosclerotic calcifications. Cardiomediastinal silhouette enlarged. Right lung chronic interstitial changes with possible peripheral fibrotic changes. - CT chest 03/03 shows R>L advanced pulm disease with moderate lymphadenopathy per report. Stable mild cardiomegaly Disposition: Patient transfer to ICU for continuous monitoring Patient seen, case reviewed, and plan discussed with Dr. Laguerre. Future recs per Dr. Laguerre. Kendall Omalley, PGY-1
--- NOTE | 2018-03-05 13:49 | CP.PCM.PN ---
Subjective - Date & Time of Evaluation Date of Evaluation: 03/05/18 Time of Evaluation: 13:47 - Subjective Subjective: PT WAS STENT LAD CT : NI HILAR MASS ONLY LYMPHADENOPATHY PULM. W/U AFTER CORONARY SPENT Objective - Vital Signs/Intake and Output Vital Signs (last 24 hours): Temp Pulse Resp BP Pulse Ox 97.9 F 76 20 134/78 97 03/05/18 07:24 03/05/18 07:24 03/05/18 07:24 03/05/18 09:04 03/05/18 07:24 Intake and Output: 03/05/18 03/05/18 11:59 23:59 Intake Total 0 Output Total 0 Balance 0 - Medications Medications: Current Medications Acetaminophen (Tylenol 325mg Tab) 650 mg PO Q6 PRN PRN Reason: Pain, Mild (1-3) Albuterol/Ipratropium (Duoneb 3 Mg/0.5 Mg (3 Ml) Ud) 3 ml INH RQ6 PRN PRN Reason: Shortness of Breath Aspirin (Ecotrin) 81 mg PO DAILY [facility] Last Admin: 03/05/18 09:04 Dose: 81 mg Metoprolol Tartrate (Lopressor) 25 mg PO BID [facility] Last Admin: 03/05/18 09:04 Dose: 25 mg Pantoprazole Sodium (Protonix Ec Tab) 40 mg PO DAILY [facility] Last Admin: 03/05/18 09:04 Dose: 40 mg Rosuvastatin Calcium (Crestor) 40 mg PO HS [facility] Last Admin: 03/04/18 21:44 Dose: 40 mg Ticagrelor (Brilinta) 90 mg PO BID [facility] Last Admin: 03/05/18 09:04 Dose: 90 mg - Labs Labs: 03/04/18 07:28 03/04/18 07:28 PT 12.0 SECONDS (9.7-12.2) 02/28/18 12:59 INR 1.1 02/28/18 12:59 APTT 28 SECONDS (21-34) 02/28/18 12:59
[2018-03-05] MEDS ORDERED: Albuterol-Ipratrop 3 mg / 0.5 (3 ml) UD INH STA (16:15)
[2018-03-06 07:08] LABS: BASO # 0.1 K/uL (0.0-0.2); BASO % 1.3 % (0.0-2.0); EOS # 0.3 K/uL (0.0-0.7); EOS % 4.7 % (0.0-4.0); HEMOGLOBIN 14.2 g/dL (12.0-18.0); LYMPH % 33.8 % (20.0-40.0); MEAN CELL VOLUME 88.7 fL (80.0-94.0); MEAN CORPUSCULAR HEMOGLOBIN 30.9 pg (27.0-31.0); MEAN CORPUSCULAR HGB CONC 34.9 g/dL (33.0-37.0); MEAN PLATELET VOLUME 7.9 fL (7.2-11.7); MONO # 0.6 K/uL (0.0-0.8); MONO % 10.8 % (0.0-10.0); NEUT # 2.9 K/uL (1.8-7.0); NEUT % 49.4 % (50.0-75.0); NRBC % 0.1 % (0.0-2.0); RBC 4.58 Mil/uL (4.40-5.90); RED CELL DISTRIBUTION WIDTH 12.7 % (11.5-14.5); WHITE BLOOD COUNT 5.9 K/uL (4.8-10.8)
[2018-03-06 07:18] LABS: ALB/GLOB RATIO 1.3 (1.0-2.1); ALT/SGPT 24 U/L (21-72); AST/SGOT 33 U/L (17-59); BLOOD UREA NITROGEN 27 mg/dL (9-20); CALCIUM 8.8 mg/dl (8.6-10.4); GFR NON-AFRICAN AMERICAN > 60
[2018-03-06 08:41] VITALS: O2SAT 94
[2018-03-06] MEDS: Pantoprazole 40 mg EC Tab PO SCH (09:55)
--- NOTE | 2018-03-06 13:48 | CP.PCM.PN ---
Subjective - Date & Time of Evaluation Date of Evaluation: 03/06/18 Time of Evaluation: 13:47 - Subjective Subjective: CHIEF COMPLAINTS TODAY : No further chest pain shortness of breath patient is status post angioplasty stent LAD ROS. HEENT : N. Resp : No cough, wheezing ,pleuritic CP ,or hemoptysis Cardio : No anginal CP, PND, orthopnea, palpitation GI : No abd.pain, n/v ,diarrhea or GI bleeding . 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 Musculoskel : No joint swelling , Derm : No rash Psych : Normal affect. Ext : No swelling ,calf pain PE. Pt. is alert awake in no distress. V.S As noted in the chart Head ,ear nose,throat and eyes : Normal. Neck : Supple with normal carotids. Lungs: Clear air entry. Heart : S1 & S2 normal with S4. No murmur. Abd : Soft non tender with normal bowel sounds. Neuro : Moves all ext. with no localized deficit. Ext : No edema with intact pulses.Non tender calves Derm : No rashes or decubitus ulcer. LABS/RADIOLOGY: ASSESSMENT/PLAN : further workup for hilar lymphadenopathy as per oncology. Continued DA PT Objective - Vital Signs/Intake and Output Vital Signs (last 24 hours): Temp Pulse Resp BP Pulse Ox 97.5 F L 71 18 125/75 94 L 03/06/18 08:40 03/06/18 12:00 03/06/18 08:40 03/06/18 09:56 03/06/18 08:40 - Medications Medications: Current Medications Acetaminophen (Tylenol 325mg Tab) 650 mg PO Q6 PRN PRN Reason: Pain, Mild (1-3) Albuterol/Ipratropium (Duoneb 3 Mg/0.5 Mg (3 Ml) Ud) 3 ml INH RQ6 PRN PRN Reason: Shortness of Breath Aspirin (Ecotrin) 81 mg PO DAILY [facility] Last Admin: 03/06/18 09:55 Dose: 81 mg Metoprolol Tartrate (Lopressor) 25 mg PO BID [facility] Last Admin: 03/06/18 09:55 Dose: 25 mg Pantoprazole Sodium (Protonix Ec Tab) 40 mg PO DAILY [facility] Last Admin: 03/06/18 09:55 Dose: 40 mg Rosuvastatin Calcium (Crestor) 40 mg PO HS [facility] Last Admin: 03/05/18 22:16 Dose: 40 mg Ticagrelor (Brilinta) 90 mg PO BID [facility] Last Admin: 03/06/18 09:56 Dose: 90 mg - Labs Labs: 03/06/18 06:50 03/06/18 06:50 PT 12.0 SECONDS (9.7-12.2) 02/28/18 12:59 INR 1.1 02/28/18 12:59 APTT 28 SECONDS (21-34) 02/28/18 12:59
--- NOTE | 2018-03-06 14:50 | CP.PCM.PN ---
Subjective - Date & Time of Evaluation Date of Evaluation: 03/06/18 Time of Evaluation: 13:50 - Subjective Subjective: Kendall Omalley, PGY-[address] Laguerre Patient seen and evaluated at bedside. No acute events reported overnight. Patient sitting comfortably in bed. Patient daughter at bedside. S/p cardiac cath yesterday at [place]. Patient denies current chest pain, shortness of breath, palpitations, dizziness. No loss of motor strength or sensation at cath site on R radial. No active signs of bleeding. Objective - Vital Signs/Intake and Output Vital Signs (last 24 hours): Temp Pulse Resp BP Pulse Ox 97.5 F L 71 18 125/75 94 L 03/06/18 08:40 03/06/18 12:00 03/06/18 08:40 03/06/18 09:56 03/06/18 08:40 - Medications Medications: Current Medications Acetaminophen (Tylenol 325mg Tab) 650 mg PO Q6 PRN PRN Reason: Pain, Mild (1-3) Albuterol/Ipratropium (Duoneb 3 Mg/0.5 Mg (3 Ml) Ud) 3 ml INH RQ6 PRN PRN Reason: Shortness of Breath Aspirin (Ecotrin) 81 mg PO DAILY [facility] Last Admin: 03/06/18 09:55 Dose: 81 mg Metoprolol Tartrate (Lopressor) 25 mg PO BID [facility] Last Admin: 03/06/18 09:55 Dose: 25 mg Pantoprazole Sodium (Protonix Ec Tab) 40 mg PO DAILY [facility] Last Admin: 03/06/18 09:55 Dose: 40 mg Rosuvastatin Calcium (Crestor) 40 mg PO HS [facility] Last Admin: 03/05/18 22:16 Dose: 40 mg Ticagrelor (Brilinta) 90 mg PO BID [facility] Last Admin: 03/06/18 09:56 Dose: 90 mg - Labs Labs: 03/06/18 06:50 03/06/18 06:50 PT 12.0 SECONDS (9.7-12.2) 02/28/18 12:59 INR 1.1 02/28/18 12:59 APTT 28 SECONDS (21-34) 02/28/18 12:59 - Constitutional Appears: Well, Non-toxic, No Acute Distress - Head Exam Head Exam: ATRAUMATIC, NORMOCEPHALIC - Respiratory Exam Respiratory Exam: Decreased Breath Sounds. absent: Accessory Muscle Use, Clear to Ausculation Bilateral (crackles bilaterally) - Cardiovascular Exam Cardiovascular Exam: RRR, +S1, +S2 - GI/Abdominal Exam GI & Abdominal Exam: Soft. absent: Distended, Firm, Guarding, Rigid, Tenderness - Extremities Exam Extremities Exam: absent: Pedal Edema - Skin Skin Exam: Dry, Intact, Normal Color, Warm Assessment and Plan - Assessment and Plan (Free Text) Assessment: Assessment: Mr. Nascimento is a 72 M with PMHx smoking and hemmorhagic stroke 28 years ago who presents with STEMI. 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 STEMI - EKG on admission shows ST elevations in inferior leads II, III and avF, 62 bpm - Patient received Heparin, ASA 325, Lopressor 25, Rosuvastatin 80 mg, Ticagrelor 180 mg - Cardiac cath performed 02/28, which showed 100% RCA occlusion which was opened with angioplasty and BIANCA. See dictation report for further details. - Echo 02/28 shows EF 60-65% with mildly dilated LA and RVSP ~26 mm Hg - Brilinta 90 BID, ASA 81 mg, crestor 40 mg PO, Toprol XL 25 mg PO daily - Second Cardiac cath performed 03/05/18 without complication - moderate prox LAD stenosis on angiography not requiring stent at this time Abnormal CXR - CXR: Aortic atherosclerotic calcifications. Cardiomediastinal silhouette enlarged. Right lung chronic interstitial changes with possible peripheral fibrotic changes. - CT chest 03/03 shows R>L advanced pulm disease with moderate lymphadenopathy per report. Stable mild cardiomegaly. Disposition: Patient on med-surg Patient seen, case reviewed, and plan discussed with Dr. Laguerre. Future recs per Dr. Laguerre. Kendall Omalley, PGY-1
--- NOTE | 2018-03-06 15:50 | CARD ---
APPROVED REPORT Date of service: 03/01/2018 EKG Measurement Heart [id number] <Conclusion> Normal sinus rhythm Nonspecific ST and T wave abnormality Abnormal ECG
[2018-03-06 16:30] VITALS: PULSE 73; RESP 20; TEMP 97.9
[2018-03-06 17:28] VITALS: BP 130/85
--- NOTE | 2018-03-06 18:35 | CP.PCM.PN ---
Objective - Vital Signs/Intake and Output Vital Signs (last 24 hours): Temp Pulse Resp BP Pulse Ox 97.9 F 73 20 130/85 94 L 03/06/18 15:28 03/06/18 15:28 03/06/18 15:28 03/06/18 17:27 03/06/18 15:28 - Medications Medications: Current Medications Acetaminophen (Tylenol 325mg Tab) 650 mg PO Q6 PRN PRN Reason: Pain, Mild (1-3) Albuterol/Ipratropium (Duoneb 3 Mg/0.5 Mg (3 Ml) Ud) 3 ml INH RQ6 PRN PRN Reason: Shortness of Breath Aspirin (Ecotrin) 81 mg PO DAILY [facility] Last Admin: 03/06/18 09:55 Dose: 81 mg Metoprolol Tartrate (Lopressor) 25 mg PO BID [facility] Last Admin: 03/06/18 17:27 Dose: 25 mg Pantoprazole Sodium (Protonix Ec Tab) 40 mg PO DAILY [facility] Last Admin: 03/06/18 09:55 Dose: 40 mg Rosuvastatin Calcium (Crestor) 40 mg PO HS [facility] Last Admin: 03/05/18 22:16 Dose: 40 mg Ticagrelor (Brilinta) 90 mg PO BID [facility] Last Admin: 03/06/18 17:27 Dose: 90 mg - Labs Labs: 03/06/18 06:50 03/06/18 06:50 PT 12.0 SECONDS (9.7-12.2) 02/28/18 12:59 INR 1.1 02/28/18 12:59 APTT 28 SECONDS (21-34) 02/28/18 12:59 Assessment and Plan - Assessment and Plan (Free Text) Assessment: 72 year old male s/p angioplasty stent LAD, seen and examined. Alert and orientedx3, no sob or chest pains. Cleared by DR Laguerre for discharge. Discussed with DR Alvarado, DR Cabezas and DR Anton Mccracken, plan to discharge home today. Advised to follow up with cardiologyst, DR Cabezas and DR Mccracken in 1 week for the mediastinal lymphadenopathy.
--- NOTE | 2018-03-07 11:46 | CP.PCM.DIS ---
Provider - Provider Date of Admission: 02/28/18 12:54 Attending physician: Keara Alvarado MD Time Spent in preparation of Discharge (in minutes): 36 Hospital Course - Lab Results Lab Results: Micro Results 03/02/18 19:51 Nose MRSA Culture - Final MRSA NOT DETECTED 02/28/18 17:23 Naris MRSA Culture (Admit) - Final MRSA NOT DETECTED Most Recent Lab Values WBC 5.9 K/uL (4.8-10.8) 03/06/18 06:50 RBC 4.58 Mil/uL (4.40-5.90) 03/06/18 06:50 Hgb 14.2 g/dL (12.0-18.0) 03/06/18 06:50 Hct 40.6 % (35.0-51.0) 03/06/18 06:50 MCV 88.7 fL (80.0-94.0) 03/06/18 06:50 MCH 30.9 pg (27.0-31.0) 03/06/18 06:50 MCHC 34.9 g/dL (33.0-37.0) 03/06/18 06:50 RDW 12.7 % (11.5-14.5) 03/06/18 06:50 Plt Count 294 K/uL (130-400) 03/06/18 06:50 MPV 7.9 fL (7.2-11.7) 03/06/18 06:50 Neut % (Auto) 49.4 % (50.0-75.0) L 03/06/18 06:50 Lymph % (Auto) 33.8 % (20.0-40.0) 03/06/18 06:50 [place] % (Auto) 10.8 % (0.0-10.0) H 03/06/18 06:50 Eos % (Auto) 4.7 % (0.0-4.0) H 03/06/18 06:50 Baso % (Auto) 1.3 % (0.0-2.0) 03/06/18 06:50 Neut # (Auto) 2.9 K/uL (1.8-7.0) 03/06/18 06:50 Lymph # (Auto) 2.0 K/uL (1.0-4.3) 03/06/18 06:50 [place] # (Auto) 0.6 K/uL (0.0-0.8) 03/06/18 06:50 Eos # (Auto) 0.3 K/uL (0.0-0.7) 03/06/18 06:50 Baso # (Auto) 0.1 K/uL (0.0-0.2) 03/06/18 06:50 PT 12.0 SECONDS (9.7-12.2) 02/28/18 12:59 INR 1.1 02/28/18 12:59 APTT 28 SECONDS (21-34) 02/28/18 12:59 Sodium 138 mmol/L (132-148) 03/06/18 06:50 Potassium 4.5 mmol/L (3.6-5.2) 03/06/18 06:50 Chloride 102 mmol/L (98-107) 03/06/18 06:50 Carbon Dioxide 25 mmol/L (22-30) 03/06/18 06:50 Anion Gap 15 (10-20) 03/06/18 06:50 BUN 27 mg/dL (9-20) H 03/06/18 06:50 Creatinine 1.0 mg/dL (0.8-1.5) 03/06/18 06:50 Est GFR ( Amer) > 60 03/06/18 06:50 Est GFR (Non-Af Amer) > 60 03/06/18 06:50 Random Glucose 87 mg/dL (75-110) 03/06/18 06:50 Hemoglobin A1c 5.6 % (4.2-6.5) 03/01/18 06:32 Calcium 8.8 mg/dl (8.6-10.4) 03/06/18 06:50 Phosphorus 3.2 mg/dL (2.5-4.5) 03/01/18 06:32 Magnesium 2.2 mg/dL (1.6-2.3) 03/01/18 06:32 Total Bilirubin 0.3 mg/dL (0.2-1.3) 03/06/18 06:50 AST 33 U/L (17-59) 03/06/18 06:50 ALT 24 U/L (21-72) 03/06/18 06:50 Alkaline Phosphatase 112 U/L (38-126) 03/06/18 06:50 Total Creatine Kinase 150 U/L (55-170) 03/01/18 06:32 CK-MB (Mass) 6.44 ng/mL (0.0-3.38) H 03/01/18 06:32 Troponin I 0.7350 ng/mL (0.00-0.120) H* 03/01/18 06:32 Total Protein 7.2 g/dL (6.3-8.3) 03/06/18 06:50 Albumin 4.0 g/dL (3.5-5.0) 03/06/18 06:50 Globulin 3.2 gm/dL (2.2-3.9) 03/06/18 06:50 Albumin/Globulin Ratio 1.3 (1.0-2.1) 03/06/18 06:50 Triglycerides 120 mg/dL (0-149) 03/01/18 06:32 Cholesterol 160 mg/dL (0-199) 03/01/18 06:32 LDL Cholesterol Direct 105 mg/dL (0-129) 03/01/18 06:32 HDL Cholesterol 32 mg/dL (30-70) 03/01/18 06:32 Blood Type O POSITIVE 02/28/18 12:59 Antibody Screen Negative 02/28/18 12:59 - Hospital Course Hospital Course: 72 years old male presented to [facility] emergency room with 30 minutes of chest pain and EKG showed acute inferior wall WI. Patient currently is taken to cardiac cath for primary angioplasty. Patient has no previous history of coronary artery disease but does give a history of chest pain intermittently attributing to COPD there is no any recent cardiac workup done on the patient. PAST HIST. History of hypertension and history of hemorrhagic stroke a few years ago. The cardiac cath showed there was an LAD lesion about 70%. After 2 days patient underwent angioplasty of the LAD with stent. On routine examination and CAT scan there was a mediastinal lymphadenopathy. Oncology pulmonary consult were obtained and patient is going to have outpatient mediastinoscopy for lymph node assessment. Currently patient is stable will be discharged on dual antiplatelet therapy and a beta-adelina. Discharge Exam - Head Exam Head Exam: ATRAUMATIC, NORMOCEPHALIC Discharge Plan - Discharge Medications Prescriptions: Ticagrelor [Brilinta] 90 mg PO BID #60 tab Rosuvastatin Calcium [Crestor] 40 mg PO HS #30 tab Metoprolol Tartrate [Lopressor] 25 mg PO BID #60 tab - Follow Up Plan Condition: CRITICAL Disposition: HOME/ ROUTINE Instructions: Heart Attack (DC), Ticagrelor, Metoprolol, Rosuvastatin Additional Instructions: Follow up with Dr. Alvarado in one week. Please call for an appointment Follow up with Dr. Mccracken in 1-2 weeks. Please call for an appointment. Return to the emergency room for any new or worsening symptoms. Seguimiento con el Dr. Alvarado en amara semana. Por favor llame para amara sarthak Seguimiento con el Dr. Mccracken en 1-2 semanas. Por favor llame para amara sarthak. Regrese a la marcus de emergencias para detectar cualquier sntoma nuevo o que empeore. Referrals: Jorge Cabezas MD [Staff Provider] - Matt Mccracken MD [Staff Provider] - Keara Alvarado MD [Staff Provider] -
--- NOTE | 2018-03-07 12:31 | CP.PCM.PN ---
Subjective - Date & Time of Evaluation Date of Evaluation: 03/06/18 Time of Evaluation: 17:00 - Subjective Subjective: Feeling better s/p PCI Objective - Vital Signs/Intake and Output Vital Signs (last 24 hours): Temp Pulse Resp BP Pulse Ox 97.9 F 73 20 130/85 94 L 03/06/18 15:28 03/06/18 15:28 03/06/18 15:28 03/06/18 17:27 03/06/18 15:28 - Labs Labs: 03/06/18 06:50 03/06/18 06:50 PT 12.0 SECONDS (9.7-12.2) 02/28/18 12:59 INR 1.1 02/28/18 12:59 APTT 28 SECONDS (21-34) 02/28/18 12:59 - Head Exam Head Exam: ATRAUMATIC - Eye Exam Eye Exam: Normal appearance - ENT Exam ENT Exam: Mucous Membranes Dry - Respiratory Exam Respiratory Exam: NORMAL BREATHING PATTERN - Cardiovascular Exam Cardiovascular Exam: +S1, +S2 - GI/Abdominal Exam GI & Abdominal Exam: Normal Bowel Sounds Assessment and Plan (1) Lung mass Assessment & Plan: no hilar mass seen by contrast enhanced scan mediastinal lymphadenopathy noted; outpatient EBUS. Status: Acute
== END 2018-03-06 19:10 | disposition home or self-care (01) | DRG 247 ==
LOC: C.ER 12:44 → C.9I 12:54 → C.5S 03-02 19:14
PROVIDERS: ADMIT Internal Medicine Cardiovascular Disease; ATTEND Internal Medicine Cardiovascular Disease
PROC: 027034Z Dilation of Coronary Artery, One Artery with Drug-eluting Intraluminal Device, Percutaneous Approach (ICD-10-PCS; principal; 2018-02-28)
PROC: 4A023N8 Measurement of Cardiac Sampling and Pressure, Bilateral, Percutaneous Approach (ICD-10-PCS; 2018-02-28)
PROC: B2161ZZ Fluoroscopy of Right and Left Heart using Low Osmolar Contrast (ICD-10-PCS; 2018-02-28)
DX: I21.19 ST elevation (STEMI) myocardial infarction involving other coronary artery of inferior wall (principal); I25.10 Atherosclerotic heart disease of native coronary artery without angina pectoris; I11.9 Hypertensive heart disease without heart failure; I25.82 Chronic total occlusion of coronary artery; Z87.891 Personal history of nicotine dependence; J45.909 Unspecified asthma, uncomplicated; I51.7 Cardiomegaly

== ENCOUNTER 2018-07-09 13:20 | Inpatient (IN) | payer MEDICARE, MEDICAID | END 2018-07-14 15:02 | disposition home or self-care (01) | LOC: C.ER 13:20 → C.9E 18:54 → C.5S 22:11 ==